=== PATIENT | female | born 1940 | race Caucasian/White ===

== ENCOUNTER 2017-03-23 15:06 | Inpatient (IN) | payer OTHER ==
[~2017-03-23] VITALS: Ht 170.2 cm; Wt 79.2 kg
[2017-03-23 15:49] LABS: CONDITION Y; Hematocrit 35.9 % (36.0-46.0); Hemoglobin 11.8 g/dL (12.2-16.2); Mean Corpuscular Hemoglobin 30.7 pg (28.0-32.0); Mean Corpuscular Hgb Conc. 32.9 g/dL (32.0-36.0); Mean Corpuscular Volume 93.4 fL (80.0-100.0); Mean Platelet Volume 8.4 fL (7.4-10.4); Platelet Count (auto) 273 10^3/uL (140-450); Red Cell Distribution Width 14.4 % (11.6-16.0); SUSPECT SEE PRINTOUT; White Blood Cell 17.3 10^3/uL (4.4-10.8)
[2017-03-23 15:52] LABS: Metamyelocytes % 0; Myelocytes % 0; Promyelocytes % 0; Reactive Lymphocytes 0
[2017-03-23 16:07] LABS: Albumin 3.3 g/dL (3.4-5.0); Calcium 8.7 mg/dL (8.5-10.1); Magnesium 2.4 mg/dL (1.6-2.6); Potassium 4.3 mmol/L (3.5-5.1)
[2017-03-23 16:13] LABS: Total Protein 7.1 g/dL (6.4-8.2)
[2017-03-23 16:44] LABS: Anisocytosis Slight; Platelet Estimate Adequate
[2017-03-23] MEDS ORDERED: PIPERACILLIN-TAZOB 3.375GM 100 ML IV ONE (18:30)
[2017-03-23] MEDS ORDERED: VANCOMYCIN PER PHARMACY 0 MG IV SCH (18:30)
[2017-03-23] MEDS ORDERED: SODIUM CHLORIDE 0.9% 2,000 ML IV ONE (18:30)
[2017-03-23] MEDS ORDERED: VANCOMYCIN 1GM/250ML D5W 250 ML IV ONE (19:00)
[2017-03-23 21:15] LABS: Urine Bilirubin Negative (Negative); Urine Blood TRACE /uL (Negative); Urine Color Yellow (Yellow); Urine Glucose Normal (Normal); Urine Hyaline Cast FEW /lpf (0 - 2); Urine Ketone Negative (Negative); Urine Mucus FEW (None Seen); Urine Nitrite Negative (Negative); Urine RBC 1 /hpf (0 - 4); Urine Squamous Epithelial Cell FEW /hpf (<5); Urine Urobilinogen Normal (Negative); Urine pH 5.5 (5.0-8.0)
[2017-03-23] MEDS ORDERED: ACETAMINOPHEN 325 MG TAB PO ONE (22:00)
[2017-03-23] MEDS ORDERED: NITROGLYCERIN 0.4 MG SL TAB SL PRN (23:45)
[2017-03-23] MEDS ORDERED: ONDANSETRON HCL 4 MG/2 ML VIAL IV PRN (23:45)
[2017-03-23] MEDS ORDERED: MORPHINE SULF INJ 2 MG/ML SYRINGE 1ML IV PRN ×2 (23:45)
[2017-03-24] VITALS (8 sets, daily range): BP systolic 108–177; BP diastolic 60–84
[2017-03-24] MEDS: hydrALAZINE HCL 20 MG/ML VL IV PRN (05:47)
[2017-03-24] MEDS: ALBUTEROL SULF 2.5 MG/0.5ML(0.5%) NEB SOLN NEB PRN ×2 (06:10→18:25)
[2017-03-24] MEDS: IPRATROPIUM BROM 0.5 MG/2.5ML INH SOL NEB PRN ×2 (06:10→18:25)
[2017-03-24 06:38] LABS: Basophils # (auto) 0 uL; Basophils % (auto) 0.2 % (0.0-2.0); CONDITION Y; Eosinophils # (auto) 0.1 uL; Eosinophils % (auto) 0.4 % (0.0-7.0); Hematocrit 34.1 % (36.0-46.0); Hemoglobin 11.4 g/dL (12.2-16.2); Lymphocytes # (auto) 1.1 uL; Lymphocytes % (auto) 7.6 % (10.0-50.0); Mean Corpuscular Hemoglobin 30.9 pg (28.0-32.0); Mean Corpuscular Hgb Conc. 33.4 g/dL (32.0-36.0); Mean Corpuscular Volume 92.5 fL (80.0-100.0); Mean Platelet Volume 9.1 fL (7.4-10.4); Monocytes # (auto) 0.9 uL; Monocytes % (auto) 5.6 % (0.0-12.0); Neutrophils # (auto) 13.1 uL; Neutrophils % (auto) 86.2 % (37.0-80.0); Platelet Count (auto) 254 10^3/uL (140-450); Red Cell Distribution Width 14.9 % (11.6-16.0); White Blood Cell 15.2 10^3/uL (4.4-10.8)
[2017-03-24 06:56] LABS: Calcium 8.6 mg/dL (8.5-10.1); Potassium 4.5 mmol/L (3.5-5.1)
[2017-03-24 06:59] LABS: BUN/Creatinine Ratio 20.8
[2017-03-24] MEDS: amLODIPine BESYLATE 5 MG TAB PO SCH (08:21)
[2017-03-24] MEDS: PANTOPRAZOLE 40 MG TAB PO SCH (08:21)
[2017-03-24] MEDS: CLOPIDOGREL BISULFATE 75 MG TAB PO SCH (08:21)
[2017-03-24] MEDS: METOPROLOL TARTRATE 25 MG TAB PO SCH ×2 (08:22→21:48)
[2017-03-24] MEDS: AZITHROMYCIN 500MG/D5W 250ML 250 ML IV SCH (08:22)
[2017-03-24] MEDS: ASPirin 81 mg TAB PO SCH (08:22)
[2017-03-24] MEDS ORDERED: FUROSEMIDE 20 MG TAB PO SCH (10:00)
[2017-03-24 16:23] LABS: Basophils # (auto) 0 uL; Basophils % (auto) 0.3 % (0.0-2.0); CONDITION Y; Eosinophils # (auto) 0 uL; Eosinophils % (auto) 0.2 % (0.0-7.0); Hematocrit 34.4 % (36.0-46.0); Hemoglobin 11.4 g/dL (12.2-16.2); Lymphocytes # (auto) 1.3 uL; Lymphocytes % (auto) 8.8 % (10.0-50.0); Mean Corpuscular Hgb Conc. 33.3 g/dL (32.0-36.0); Mean Corpuscular Volume 93.3 fL (80.0-100.0); Mean Platelet Volume 8.7 fL (7.4-10.4); Monocytes # (auto) 0.8 uL; Monocytes % (auto) 5.1 % (0.0-12.0); Neutrophils # (auto) 12.9 uL; Neutrophils % (auto) 85.6 % (37.0-80.0); Platelet Count (auto) 271 10^3/uL (140-450); Red Cell Distribution Width 15.1 % (11.6-16.0); White Blood Cell 15.1 10^3/uL (4.4-10.8)
[2017-03-24 16:44] LABS: INR 1.03 (0.9-1.15); Partial Thromboplastin Time 30.1 sec (22.64-33.71); Prothrombin Time 11.2 sec (9.37-12.3)
[2017-03-24] MEDS ORDERED: SOD CHL 0.45% 1,000 ML IV SCH (17:00)
[2017-03-24] MEDS ORDERED: HEPARIN DRIP/D5W 100UNITS/ML 250 ML IV SCH (18:00)
[2017-03-24] MEDS ORDERED: HEPARIN SODIUM (PORCINE) 5000 UNITS/ML 1ML VIAL IV ONE (18:00)
[2017-03-24] MEDS: ACETYLCYSTEINE ORAL for CIN 20%(200MG/ML) 4ML PO SCH (21:48)
[2017-03-24] MEDS ORDERED: ATORVASTATIN 20 MG TAB PO SCH (22:00)
[2017-03-24] MEDS: guaiFENesin-COD 10 ML UD PO PRN (23:23)
[2017-03-25] MEDS: ALBUTEROL SULF 2.5 MG/0.5ML(0.5%) NEB SOLN NEB PRN ×3 (04:09→13:42)
[2017-03-25] MEDS: IPRATROPIUM BROM 0.5 MG/2.5ML INH SOL NEB PRN ×3 (04:09→13:42)
[2017-03-25 05:00] VITALS: BP 160/73
[2017-03-25] MEDS: hydrALAZINE HCL 20 MG/ML VL IV PRN (05:08)
[2017-03-25 06:15] LABS: INR 1.05 (0.9-1.15); Prothrombin Time 11.4 sec (9.37-12.3)
[2017-03-25 06:25] LABS: Potassium 4.2 mmol/L (3.5-5.1)
[2017-03-25 06:31] LABS: BUN/Creatinine Ratio 22.9; Calcium 8.3 mg/dL (8.5-10.1)
[2017-03-25 06:47] LABS: Magnesium 2.2 mg/dL (1.6-2.6)
[2017-03-25] MEDS ORDERED: IODIXANOL 320MG/ML 100ML BTL IV ONE (07:18)
[2017-03-25] MEDS ORDERED: LIDOCAINE 2%HCL (LOCAL ANESTH.) INJ 20ML MDV ONE (07:18)
[2017-03-25] MEDS ORDERED: HEPARIN IN NS 1000Units/500mL 0 ML ONE (07:19)
[2017-03-25] MEDS ORDERED: ADENOSINE 67 MG in GIVE UN-DILUTED 0 ML IV STA (08:04)
[2017-03-25] MEDS: ASPirin 81 mg TAB PO SCH (10:00)
[2017-03-25] MEDS: AZITHROMYCIN 500MG/D5W 250ML 250 ML IV SCH (10:12)
[2017-03-25] MEDS: CLOPIDOGREL BISULFATE 75 MG TAB PO SCH (10:13)
[2017-03-25] MEDS: PANTOPRAZOLE 40 MG TAB PO SCH (10:13)
[2017-03-25] MEDS: amLODIPine BESYLATE 5 MG TAB PO SCH (10:13)
[2017-03-25] MEDS: METOPROLOL TARTRATE 25 MG TAB PO SCH (10:14)
[2017-03-25] MEDS: ACETYLCYSTEINE ORAL for CIN 20%(200MG/ML) 4ML PO SCH (10:25)
[2017-03-25 12:10] VITALS: BP 103/75
[2017-03-25] MEDS: guaiFENesin-COD 10 ML UD PO PRN (13:35)
[2017-03-25 13:49] LABS: Allen Test Yes; Base Excess -4.3 mmol/L (-2.0-2.0); Blood 02Sat 89.9 % (96-100); Blood COHb 0.3 % (0.5-1.5); Blood MetHb 0.1 % (0.0-1.5); HCO3 20.4 mmol/L (22-26.0); HHb 10.1 % (0.0-5.0); MODE ROOM AIR; O2Hb 89.5 % (94.0-97.0); PO2 60.2 mmHg (80.0-100.0); PO2(T) 60.2 mmHg (80.0-100.0); Room 0246T; Sample Type Arterial; pH 7.371 (7.350-7.450)
[2017-03-25 15:16] VITALS: BP 103/75
[2017-03-25 16:35] VITALS: BP 117/50
== END 2017-03-25 17:20 | disposition home or self-care (01) | DRG 280 ==
LOC: ER 15:13 → TELE 15:14 → TELE-EAST 03-24 05:07
PROVIDERS: ADMIT Hospitalist; ATTEND Hospitalist
DX: I21.4 Non-ST elevation (NSTEMI) myocardial infarction (principal); G92 Toxic encephalopathy; N17.9 Acute kidney failure, unspecified; I13.0 Hypertensive heart and chronic kidney disease with heart failure and stage 1 through stage 4 chronic kidney disease, or unspecified chronic kidney disease; F05 Delirium due to known physiological condition; I50.9 Heart failure, unspecified; F03.90 Unspecified dementia, unspecified severity, without behavioral disturbance, psychotic disturbance, mood disturbance, and anxiety; E78.5 Hyperlipidemia, unspecified; G62.9 Polyneuropathy, unspecified; F17.210 Nicotine dependence, cigarettes, uncomplicated; I73.9 Peripheral vascular disease, unspecified; J44.9 Chronic obstructive pulmonary disease, unspecified; J06.9 Acute upper respiratory infection, unspecified; K21.9 Gastro-esophageal reflux disease without esophagitis; M15.9 Polyosteoarthritis, unspecified; N18.3 Chronic kidney disease, stage 3 (moderate); Z86.73 Personal history of transient ischemic attack (TIA), and cerebral infarction without residual deficits; Z82.49 Family history of ischemic heart disease and other diseases of the circulatory system; Z82.5 Family history of asthma and other chronic lower respiratory diseases
CPT/HCPCS: 36415; 36600; 70450; 70551; 71010; 76775; 80048; 80053; 81001; 82805; 83735; 84484; 85007; 85025; 85027; 85610; 85730; 87040; 93005; 93886; 94640; 95819; 96365; 96366; 96367; J0153; J2405; J2543; Q9967

== ENCOUNTER 2017-03-31 13:05 | Inpatient (IN) | payer OTHER ==
[~2017-03-31] VITALS: Ht 157.5 cm; Wt 72.6 kg
[2017-03-31 13:30] LABS: Hematocrit 28.9 % (36.0-46.0); Hemoglobin 9.8 g/dL (12.2-16.2); Mean Corpuscular Hemoglobin 31.3 pg (28.0-32.0); Mean Corpuscular Hgb Conc. 33.8 g/dL (32.0-36.0); Mean Corpuscular Volume 92.4 fL (80.0-100.0); Mean Platelet Volume 7.3 fL (6.9-10.8); Platelet Count (auto) 332 10^3/uL (140-450); Red Cell Distribution Width 14.3 % (11.8-14.3); White Blood Cell 10.5 10^3/uL (4.4-10.8)
[2017-03-31] MEDS ORDERED: SODIUM CHLORIDE 0.9% 1,000 ML IV ONE (13:46)
[2017-03-31 13:47] LABS: INR 1.12 (0.9-1.15); Partial Thromboplastin Time 28.7 sec (22.64-33.71); Prothrombin Time 12.2 sec (9.37-12.3)
[2017-03-31 13:49] LABS: Metamyelocytes % 0; Myelocytes % 0; Promyelocytes % 0; Reactive Lymphocytes 0
[2017-03-31] MEDS ORDERED: ALBUTEROL SULF 2.5 MG/0.5ML(0.5%) NEB SOLN NEB ONE (14:00)
[2017-03-31] MEDS ORDERED: IPRATROPIUM BROM 0.5 MG/2.5ML INH SOL NEB ONE (14:00)
[2017-03-31] MEDS ORDERED: FUROSEMIDE 40 MG/4 ML VIAL IV ONE (14:00)
[2017-03-31 14:07] LABS: Albumin 2.9 g/dL (3.4-5.0); BUN/Creatinine Ratio 27.5; Bilirubin, Total 0.6 mg/dL (0.2-1.0); Calcium 8.5 mg/dL (8.5-10.1); Magnesium 2.7 mg/dL (1.6-2.6); Potassium 4.7 mmol/L (3.5-5.1); Total Protein 6.7 g/dL (6.4-8.2)
[2017-03-31 14:23] LABS: Temperature: 21.5 C (20.0-25.0)
[2017-03-31 14:37] LABS: Platelet Estimate Adequate
[2017-03-31] MEDS ORDERED: MORPHINE SULF INJ 2 MG/ML SYRINGE 1ML IV PRN ×3 (17:00→19:30)
[2017-03-31] MEDS ORDERED: NITROGLYCERIN 0.4 MG SL TAB SL PRN (17:00)
[2017-03-31] MEDS: ASPirin 81 mg TAB PO SCH (17:15)
[2017-03-31] MEDS: CLOPIDOGREL BISULFATE 75 MG TAB PO SCH (17:15)
[2017-03-31] MEDS ORDERED: hydrALAZINE HCL 20 MG/ML VL IV PRN (18:45)
[2017-03-31] MEDS ORDERED: LORazepam 2MG/ML-1ML VIAL IV PRN (18:45)
[2017-03-31 19:22] VITALS: BP 165/70
[2017-03-31 21:54] VITALS: BP 163/65
[2017-03-31] MEDS ORDERED: ATORVASTATIN 20 MG TAB PO SCH (22:00)
[2017-03-31] MEDS: IPRATROPIUM BROM 0.5 MG/2.5ML INH SOL NEB PRN (23:17)
[2017-03-31] MEDS: ALBUTEROL SULF 2.5 MG/0.5ML(0.5%) NEB SOLN NEB PRN (23:18)
[2017-04-01] MEDS ORDERED: CHOL20007 PO (02:12)
[2017-04-01] MEDS ORDERED: SOTA80TA PO (02:12)
[2017-04-01] MEDS ORDERED: FURO20TA3 PO (02:12)
[2017-04-01] MEDS ORDERED: MAGN400T5 OR (02:12)
[2017-04-01] MEDS ORDERED: BUPR75TA9 PO (02:12)
[2017-04-01] MEDS ORDERED: CLOP75TA41 PO (02:12)
[2017-04-01] MEDS ORDERED: PANT40TA2 PO (02:12)
[2017-04-01] MEDS ORDERED: AMLO5TAB2 PO (02:12)
[2017-04-01] MEDS ORDERED: RANO500T2 PO (02:12)
[2017-04-01] MEDS ORDERED: CITA-77 PO (02:12)
[2017-04-01] MEDS ORDERED: POTA10TA51 PO (02:12)
[2017-04-01] MEDS ORDERED: METO25TA5 PO (02:12)
[2017-04-01] MEDS ORDERED: ATOR40TA52 PO (02:12)
[2017-04-01] MEDS ORDERED: ASPI81TA27 PO (02:12)
[2017-04-01] MEDS ORDERED: ALBU2TAB4 PO (02:12)
[2017-04-01] MEDS: ALBUTEROL SULF 2.5 MG/0.5ML(0.5%) NEB SOLN NEB PRN (02:47)
[2017-04-01] MEDS: IPRATROPIUM BROM 0.5 MG/2.5ML INH SOL NEB PRN (02:47)
[2017-04-01 03:01] VITALS: BP 183/65
[2017-04-01 05:00] VITALS: BP 151/76
[2017-04-01 06:27] LABS: Hematocrit 28.2 % (36.0-46.0); Hemoglobin 9.8 g/dL (12.2-16.2); Mean Corpuscular Hemoglobin 31.4 pg (28.0-32.0); Mean Corpuscular Hgb Conc. 34.7 g/dL (32.0-36.0); Mean Corpuscular Volume 90.6 fL (80.0-100.0); Mean Platelet Volume 7.6 fL (6.9-10.8); Platelet Count (auto) 312 10^3/uL (140-450); Red Cell Distribution Width 14.2 % (11.8-14.3); White Blood Cell 8.6 10^3/uL (4.4-10.8)
[2017-04-01 06:53] LABS: Albumin 2.7 g/dL (3.4-5.0); BUN/Creatinine Ratio 27.2; Bilirubin, Total 0.6 mg/dL (0.2-1.0); Calcium 8.4 mg/dL (8.5-10.1); Potassium 3.8 mmol/L (3.5-5.1); Total Protein 6.2 g/dL (6.4-8.2)
[2017-04-01 07:08] LABS: Metamyelocytes % 0; Myelocytes % 0; Promyelocytes % 0; Reactive Lymphocytes 0
[2017-04-01 07:43] LABS: Platelet Estimate Adequate
[2017-04-01 09:21] VITALS: BP 189/62
[2017-04-01] MEDS: ASPirin 81 mg TAB PO SCH (10:00)
[2017-04-01] MEDS: CLOPIDOGREL BISULFATE 75 MG TAB PO SCH (10:00)
[2017-04-01] MEDS ORDERED: FUROSEMIDE 40 MG/4 ML VIAL IV SCH (10:00)
[2017-04-01 13:00] VITALS: BP 176/69
[2017-04-01 13:43] VITALS: BP 189/62
== END 2017-04-01 16:50 | disposition hospice, home (50) | DRG 280 ==
LOC: EDUNIT# 13:05 → EDBD 13:05 → ER 13:08 → TELE 13:09 → TELE-EAST 18:13
PROVIDERS: ADMIT Internal Medicine; ATTEND Internal Medicine
DX: I21.4 Non-ST elevation (NSTEMI) myocardial infarction (principal); I50.43 Acute on chronic combined systolic (congestive) and diastolic (congestive) heart failure; J81.1 Chronic pulmonary edema; L89.309 Pressure ulcer of unspecified buttock, unspecified stage; E44.0 Moderate protein-calorie malnutrition; I13.0 Hypertensive heart and chronic kidney disease with heart failure and stage 1 through stage 4 chronic kidney disease, or unspecified chronic kidney disease; F03.90 Unspecified dementia, unspecified severity, without behavioral disturbance, psychotic disturbance, mood disturbance, and anxiety; E87.1 Hypo-osmolality and hyponatremia; I50.9 Heart failure, unspecified; I48.91 Unspecified atrial fibrillation; E78.5 Hyperlipidemia, unspecified; N18.9 Chronic kidney disease, unspecified; J44.9 Chronic obstructive pulmonary disease, unspecified; I70.0 Atherosclerosis of aorta; I25.119 Atherosclerotic heart disease of native coronary artery with unspecified angina pectoris; M19.90 Unspecified osteoarthritis, unspecified site; Z66 Do not resuscitate; Z87.01 Personal history of pneumonia (recurrent); Z88.2 Allergy status to sulfonamides
CPT/HCPCS: 36415; 51702; 71010; 80053; 83735; 83880; 84443; 84484; 85007; 85027; 85379; 85610; 85730; 93005; 94640; 96361; 96374

== ENCOUNTER 2017-10-22 17:47 | Emergency (ER) | payer MEDICARE, OTHER ==
[~2017-10-22] VITALS: Ht 165.1 cm; Wt 77.1 kg
[~2017-10-22 17:47] MED LIST: ALBU2TAB4 PO; AMLO5TAB2 PO; ATOR40TA52 PO; BUPR75TA9 PO; CHOL20007 PO; CITA-77 PO; FURO20TA3 PO; MAGN400T5 OR; PANT40TA2 PO; POTA10TA51 PO; RANO500T2 PO
[2017-10-22] MEDS ORDERED: HYDROcodone-ACET 10/325MG TAB PO ONE (20:00)
[2017-10-22 20:19] LABS: Basophils # (auto) 0.1 uL; Basophils % (auto) 0.7 % (0.0-2.0); Eosinophils # (auto) 0.2 uL; Eosinophils % (auto) 2.2 % (0.0-7.0); Hematocrit 38.6 % (36.0-46.0); Hemoglobin 12.5 g/dL (12.2-16.2); Lymphocytes % (auto) 21.2 % (10.0-50.0); Mean Corpuscular Hemoglobin 31.1 pg (28.0-32.0); Mean Corpuscular Hgb Conc. 32.4 g/dL (32.0-36.0); Monocytes # (auto) 0.7 uL; Monocytes % (auto) 7.4 % (0.0-12.0); Neutrophils # (auto) 6.4 uL; Neutrophils % (auto) 68.5 % (37.0-80.0); Platelet Count (auto) 246 10^3/uL (140-450); Red Blood Cells 4.02 10^6/uL (4.0-5.20); Red Cell Distribution Width 16.1 % (11.8-14.3); White Blood Cell 9.3 10^3/uL (4.4-10.8)
[2017-10-22 20:38] LABS: Alanine Aminotransferase 16 U/L (13-56); Albumin 3.3 g/dL (3.4-5.0); Anion Gap 7 (5-15); Aspartate Aminotransferase 22 U/L (15-37); BUN/Creatinine Ratio 32.7; Blood Urea Nitrogen 50 mg/dL (7-18); Calcium 8.8 mg/dL (8.5-10.1); Carbon Dioxide 23 mmol/L (21-32); Chloride 111 mmol/L (98-107); GFR African American 42 mL/min; GFR Non-African American 35 mL/min; Glucose 86 mg/dL (74-106); Magnesium 2.3 mg/dL (1.6-2.6); Potassium 4.6 mmol/L (3.5-5.1); Sodium 141 mmol/L (136-145)
[2017-10-22 20:43] LABS: Alkaline Phosphatase 92 U/L (45-117); Bilirubin, Total 0.3 mg/dL (0.2-1.0)
[2017-10-23] MEDS ORDERED: FUROSEMIDE 20 MG/2 ML VIAL IV ONE (01:15)
[2017-10-23 02:24] LABS: Urine Bacteria NONE SEEN /hpf (None Seen); Urine Blood Negative /uL (Negative); Urine Specific Gravity 1.012 (1.001-1.035); Urine WBC 1 /hpf (0 - 5)
[2017-10-23] MEDS ORDERED: HYDROcodone-ACET 10/325MG TAB PO ONE (03:30)
[2017-10-23] MEDS ORDERED: SODIUM CHLORIDE 0.9% 1,000 ML IV ONE (05:15)
[2017-10-23 09:12] VITALS: BP 147/63
== END 2017-10-23 10:20 | disposition home or self-care (01) ==
LOC: ER 17:48
DX: I11.0 Hypertensive heart disease with heart failure (principal); I50.9 Heart failure, unspecified; I25.2 Old myocardial infarction; J44.9 Chronic obstructive pulmonary disease, unspecified; I48.91 Unspecified atrial fibrillation; Z79.899 Other long term (current) drug therapy; Z88.2 Allergy status to sulfonamides
CPT/HCPCS: 36415; 70450; 71101; 71250; 72125; 80053; 81001; 83735; 83880; 84484; 85025; 94761; 96374; 99285; J1940

== ENCOUNTER 2018-05-08 12:51 | Inpatient (IN) | payer OTHER ==
[~2018-05-08] VITALS: Ht 157.5 cm; Wt 106.9 kg
[~2018-05-08 12:51] MED LIST changes: +AMLO5TAB13 PO; -AMLO5TAB2 PO
[2018-05-08] MEDS ORDERED: SODIUM CHLORIDE 0.9% 1,000 ML IVB ONE (13:16)
[2018-05-08 14:02] LABS: Basophils # (auto) 0.1 uL; Basophils % (auto) 0.5 % (0.0-2.0); Eosinophils # (auto) 0 uL; Eosinophils % (auto) 0.3 % (0.0-7.0); Hemoglobin 11.7 g/dL (12.2-16.2); Lymphocytes # (auto) 0.6 uL; Lymphocytes % (auto) 6.6 % (10.0-50.0); Mean Corpuscular Hemoglobin 31.9 pg (28.0-32.0); Mean Corpuscular Hgb Conc. 33.5 g/dL (32.0-36.0); Mean Corpuscular Volume 95.2 fL (80.0-100.0); Monocytes # (auto) 0.6 uL; Monocytes % (auto) 5.9 % (0.0-12.0); Neutrophils # (auto) 8.3 uL; Neutrophils % (auto) 86.7 % (37.0-80.0); Platelet Count (auto) 245 10^3/uL (140-450); Red Blood Cells 3.67 10^6/uL (4.0-5.20); Red Cell Distribution Width 14.6 % (11.8-14.3); White Blood Cell 9.6 10^3/uL (4.4-10.8)
[2018-05-08 14:19] LABS: Alanine Aminotransferase 17 U/L (13-56); Albumin 3.3 g/dL (3.4-5.0); Anion Gap 9 (5-15); Aspartate Aminotransferase 29 U/L (15-37); BUN/Creatinine Ratio 20.8; Blood Alcohol < 3.0 mg/dL (0-5); Blood Urea Nitrogen 54 mg/dL (7-18); Calcium 7.9 mg/dL (8.5-10.1); Carbon Dioxide 21 mmol/L (21-32); Chloride 111 mmol/L (98-107); GFR African American 23 mL/min; GFR Non-African American 19 mL/min; Glucose 105 mg/dL (74-106); Potassium 4.5 mmol/L (3.5-5.1); Sodium 141 mmol/L (136-145)
[2018-05-08 14:23] LABS: Alkaline Phosphatase 82 U/L (45-117); Bilirubin, Total 0.2 mg/dL (0.2-1.0); Total Protein 7.1 g/dL (6.4-8.2)
[2018-05-08 14:24] LABS: Acetaminophen 33.1 ug/mL (10-30); Salicylate < 0.2 mg/dL (2.8-20.0)
[2018-05-08] MEDS ORDERED: ACETYLCYSTEINE IV ONE ×2 (15:00→16:00)
[2018-05-08] MEDS ORDERED: D5W 5% IV ONE ×2 (15:00→16:00)
[2018-05-08] MEDS ORDERED: NITROGLYCERIN 0.4 MG SL TAB SL PRN (17:15)
[2018-05-08] MEDS ORDERED: SOD CHL 0.45% 1,000 ML IV ONE (17:15)
[2018-05-08] MEDS ORDERED: MORPHINE SULFATE 4 MG/ML SYR/VIAL IV PRN (17:15)
[2018-05-08] MEDS ORDERED: NALOXONE HCL 0.4 MG/ML VIAL IV ONE (18:30)
[2018-05-08] MEDS ORDERED: NALOXONE HCL 0.4 MG/ML VIAL IV PRN (18:30)
[2018-05-08] MEDS ORDERED: NALOXONE HCL 0.4 MG/ML VIAL ONE (18:33)
[2018-05-08 22:05] LABS: Basophils # (auto) 0.1 uL; Basophils % (auto) 0.7 % (0.0-2.0); Eosinophils # (auto) 0 uL; Eosinophils % (auto) 0.4 % (0.0-7.0); Hematocrit 35.7 % (36.0-46.0); Hemoglobin 11.6 g/dL (12.2-16.2); Lymphocytes # (auto) 1.1 uL; Lymphocytes % (auto) 10.8 % (10.0-50.0); Mean Corpuscular Hemoglobin 31.6 pg (28.0-32.0); Mean Corpuscular Hgb Conc. 32.5 g/dL (32.0-36.0); Mean Corpuscular Volume 97.4 fL (80.0-100.0); Monocytes # (auto) 0.7 uL; Monocytes % (auto) 6.9 % (0.0-12.0); Neutrophils # (auto) 8.5 uL; Neutrophils % (auto) 81.2 % (37.0-80.0); Platelet Count (auto) 227 10^3/uL (140-450); Red Blood Cells 3.67 10^6/uL (4.0-5.20); Red Cell Distribution Width 15.1 % (11.8-14.3); White Blood Cell 10.5 10^3/uL (4.4-10.8)
[2018-05-08] MEDS: D5W 5% IV SCH (22:22)
[2018-05-08] MEDS: ACETYLCYSTEINE IV SCH (22:22)
[2018-05-08 22:26] LABS: Albumin 2.9 g/dL (3.4-5.0); Calcium 7.9 mg/dL (8.5-10.1); Potassium 4.6 mmol/L (3.5-5.1)
[2018-05-08 22:30] LABS: BUN/Creatinine Ratio 18.1; Bilirubin, Total 0.2 mg/dL (0.2-1.0)
[2018-05-09 09:24] LABS: Urine Bacteria NONE SEEN /hpf (None Seen); Urine Blood Negative /uL (Negative); Urine Mucus FEW (None Seen); Urine Specific Gravity 1.021 (1.001-1.035); Urine WBC 2 /hpf (0 - 5)
[2018-05-09 09:28] LABS: Alcohol, Urine < 3.0 mg/dL (0-5); Amphetamine Screen, Urine NEGATIVE (NEGATIVE); Barbiturate Scree,Urine NEGATIVE (NEGATIVE); Benzodiazephine Screen, Urine NEGATIVE (NEGATIVE); Cannabinoid Screen, Urine NEGATIVE (NEGATIVE); Cocaine Screen, Urine NEGATIVE (NEGATIVE); Opiate Scree,Urine POSITIVE (NEGATIVE); Phencyclidine Screen, Urine NEGATIVE (NEGATIVE)
[2018-05-09] MEDS ORDERED: NALOXONE HCL 1MG/ML 2ML SYRINGE IV ONE (09:45)
[2018-05-09 10:00] LABS: Basophils # (auto) 0 uL; Basophils % (auto) 0.4 % (0.0-2.0); Eosinophils # (auto) 0.1 uL; Eosinophils % (auto) 1.3 % (0.0-7.0); Hematocrit 35.4 % (36.0-46.0); Hemoglobin 11.7 g/dL (12.2-16.2); Lymphocytes % (auto) 10.1 % (10.0-50.0); Mean Corpuscular Hemoglobin 31.7 pg (28.0-32.0); Mean Corpuscular Volume 96.1 fL (80.0-100.0); Monocytes # (auto) 0.8 uL; Monocytes % (auto) 7.7 % (0.0-12.0); Neutrophils # (auto) 8.1 uL; Neutrophils % (auto) 80.5 % (37.0-80.0); Platelet Count (auto) 217 10^3/uL (140-450); Red Blood Cells 3.69 10^6/uL (4.0-5.20); Red Cell Distribution Width 15.1 % (11.8-14.3); White Blood Cell 10.1 10^3/uL (4.4-10.8)
[2018-05-09 10:18] LABS: BUN/Creatinine Ratio 18.2; Calcium 8.2 mg/dL (8.5-10.1)
[2018-05-09] MEDS ORDERED: LORazepam 2MG/ML-1ML VIAL ONE (12:06)
[2018-05-09] MEDS ORDERED: LORazepam 2MG/ML-1ML VIAL IV ONE ×2 (12:15→16:30)
[2018-05-09 12:40] LABS: Creatinine, Urine 133 mg/dL (30.0-125.0); Sodium Urine 41 mmol/L (40-220)
[2018-05-09] MEDS: D5W 5% IV SCH (13:57)
[2018-05-09] MEDS: ACETYLCYSTEINE IV SCH (13:57)
[2018-05-09 15:08] LABS: Albumin 2.8 g/dL (3.4-5.0); Calcium 8.3 mg/dL (8.5-10.1); Potassium 3.5 mmol/L (3.5-5.1)
[2018-05-09 15:10] LABS: BUN/Creatinine Ratio 19.8
[2018-05-09 15:12] LABS: Bilirubin, Total 0.5 mg/dL (0.2-1.0); Total Protein 6.5 g/dL (6.4-8.2)
[2018-05-10 02:28] VITALS: BP 139/75
[2018-05-10] MEDS: D5W 5% IV SCH (04:00)
[2018-05-10] MEDS: ACETYLCYSTEINE IV SCH (04:00)
[2018-05-10 05:00] VITALS: BP 123/59
[2018-05-10 06:24] LABS: Basophils # (auto) 0.1 uL; Basophils % (auto) 0.8 % (0.0-2.0); Eosinophils # (auto) 0 uL; Eosinophils % (auto) 0.2 % (0.0-7.0); Hemoglobin 11.1 g/dL (12.2-16.2); Lymphocytes # (auto) 1.2 uL; Lymphocytes % (auto) 12.9 % (10.0-50.0); Mean Corpuscular Hemoglobin 32.1 pg (28.0-32.0); Mean Corpuscular Hgb Conc. 33.7 g/dL (32.0-36.0); Mean Corpuscular Volume 95.4 fL (80.0-100.0); Monocytes # (auto) 0.6 uL; Monocytes % (auto) 6.8 % (0.0-12.0); Neutrophils # (auto) 7.5 uL; Neutrophils % (auto) 79.3 % (37.0-80.0); Platelet Count (auto) 186 10^3/uL (140-450); Red Blood Cells 3.46 10^6/uL (4.0-5.20); Red Cell Distribution Width 14.2 % (11.8-14.3); White Blood Cell 9.4 10^3/uL (4.4-10.8)
[2018-05-10 06:39] LABS: Albumin 2.5 g/dL (3.4-5.0); Calcium 8.4 mg/dL (8.5-10.1); Potassium 3.2 mmol/L (3.5-5.1)
[2018-05-10 06:44] LABS: BUN/Creatinine Ratio 24.8; Bilirubin, Total 0.6 mg/dL (0.2-1.0); Phosphorus 3.3 mg/dL (2.5-4.90); Total Protein 6.1 g/dL (6.4-8.2)
[2018-05-10 08:30] VITALS: BP 166/80
[2018-05-10] MEDS ORDERED: D5W/SOD CHL 0.45%/KCL 20MEQ 1,000 ML IV SCH (11:00)
[2018-05-10 13:00] VITALS: BP 164/66
[2018-05-10] MEDS: SODIUM BICARBONATE 50ML VIAL 50 ML in D5W/SOD CHL 0.45%/KCL 20MEQ 1,000 ML IV SCH (13:56)
[2018-05-10] MEDS ORDERED: POTASSIUM CHL 20 Meq TABLET PO SCH ×2 (14:00)
[2018-05-10 17:14] VITALS: BP 161/75
[2018-05-10 22:00] VITALS: BP 166/76
[2018-05-10 22:46] LABS: Alanine Aminotransferase 25 U/L (13-56); Albumin 2.5 g/dL (3.4-5.0); Anion Gap 9 (5-15); Aspartate Aminotransferase 55 U/L (15-37); BUN/Creatinine Ratio 21.2; Blood Urea Nitrogen 25 mg/dL (7-18); Calcium 8.5 mg/dL (8.5-10.1); Carbon Dioxide 21 mmol/L (21-32); Chloride 117 mmol/L (98-107); GFR African American 57 mL/min; GFR Non-African American 47 mL/min; Glucose 105 mg/dL (74-106); Potassium 3.7 mmol/L (3.5-5.1); Sodium 147 mmol/L (136-145)
[2018-05-10 22:49] LABS: Alkaline Phosphatase 67 U/L (45-117); Bilirubin, Total 0.7 mg/dL (0.2-1.0); Total Protein 6.2 g/dL (6.4-8.2)
[2018-05-11] MEDS: SODIUM BICARBONATE 50ML VIAL 50 ML in D5W/SOD CHL 0.45%/KCL 20MEQ 1,000 ML IV SCH ×2 (05:16→15:00)
[2018-05-11 05:37] LABS: Basophils # (auto) 0.1 uL; Basophils % (auto) 1.2 % (0.0-2.0); Eosinophils # (auto) 0 uL; Eosinophils % (auto) 0.3 % (0.0-7.0); Hematocrit 34.6 % (36.0-46.0); Hemoglobin 11.7 g/dL (12.2-16.2); Lymphocytes # (auto) 0.8 uL; Lymphocytes % (auto) 7.4 % (10.0-50.0); Mean Corpuscular Hemoglobin 31.8 pg (28.0-32.0); Mean Corpuscular Hgb Conc. 33.9 g/dL (32.0-36.0); Mean Corpuscular Volume 93.8 fL (80.0-100.0); Monocytes # (auto) 0.6 uL; Monocytes % (auto) 5.4 % (0.0-12.0); Neutrophils # (auto) 9.1 uL; Neutrophils % (auto) 85.7 % (37.0-80.0); Platelet Count (auto) 196 10^3/uL (140-450); Red Blood Cells 3.69 10^6/uL (4.0-5.20); Red Cell Distribution Width 13.9 % (11.8-14.3); White Blood Cell 10.6 10^3/uL (4.4-10.8)
[2018-05-11 05:53] LABS: Albumin 2.6 g/dL (3.4-5.0); Calcium 8.3 mg/dL (8.5-10.1); Potassium 3.5 mmol/L (3.5-5.1)
[2018-05-11 05:55] LABS: BUN/Creatinine Ratio 22.5
[2018-05-11 05:58] LABS: Bilirubin, Total 0.8 mg/dL (0.2-1.0); Total Protein 6.1 g/dL (6.4-8.2)
[2018-05-11 06:05] VITALS: BP 152/78
[2018-05-11 09:00] VITALS: BP 157/64
[2018-05-11] MEDS ORDERED: cefTRIAXone 1GM/50ML D5W 50 ML IV SCH (09:00)
[2018-05-11 13:00] VITALS: BP 142/60
[2018-05-11] MEDS ORDERED: ALUM & MAG HYDROX-SIMETH LIQ(MAALOX) 30 ML PO ONE ×2 (16:15→19:45)
[2018-05-11 17:00] VITALS: BP 150/70
[2018-05-11] MEDS ORDERED: PANTOPRAZOLE 40 MG TAB PO ONE (20:15)
[2018-05-11 22:00] VITALS: BP 155/78
[2018-05-12 05:00] VITALS: BP 145/68
[2018-05-12 05:53] LABS: Basophils # (auto) 0.1 uL; Basophils % (auto) 0.9 % (0.0-2.0); Eosinophils # (auto) 0.1 uL; Eosinophils % (auto) 0.5 % (0.0-7.0); Hematocrit 34.3 % (36.0-46.0); Hemoglobin 11.5 g/dL (12.2-16.2); Lymphocytes # (auto) 0.9 uL; Lymphocytes % (auto) 8.2 % (10.0-50.0); Mean Corpuscular Hemoglobin 31.4 pg (28.0-32.0); Mean Corpuscular Hgb Conc. 33.4 g/dL (32.0-36.0); Monocytes # (auto) 0.8 uL; Neutrophils # (auto) 9.1 uL; Neutrophils % (auto) 83.4 % (37.0-80.0); Platelet Count (auto) 209 10^3/uL (140-450); Red Blood Cells 3.65 10^6/uL (4.0-5.20); Red Cell Distribution Width 13.8 % (11.8-14.3); White Blood Cell 10.9 10^3/uL (4.4-10.8)
[2018-05-12 06:16] LABS: Albumin 2.6 g/dL (3.4-5.0); BUN/Creatinine Ratio 19.8; Calcium 8.5 mg/dL (8.5-10.1)
[2018-05-12 06:18] LABS: Bilirubin, Total 1.1 mg/dL (0.2-1.0); Total Protein 6.4 g/dL (6.4-8.2)
[2018-05-12 08:00] VITALS: BP 156/69
[2018-05-12] MEDS ORDERED: POLYETHYLENE GLYCOL 17 GM PWDR PO PRN (09:30)
[2018-05-12] MEDS ORDERED: BISACODYL 10 MG RECT SUPP PR ONE (09:30)
[2018-05-12] MEDS ORDERED: FUROSEMIDE 20 MG TAB PO SCH (10:00)
[2018-05-12] MEDS ORDERED: PANTOPRAZOLE 40 MG TAB PO SCH (10:00)
[2018-05-12] MEDS ORDERED: amLODIPine BESYLATE 5 MG TAB PO SCH (10:00)
[2018-05-12] MEDS ORDERED: CHOLECALCIFEROL (VITD3) 1,000 UNIT TAB PO SCH (10:00)
[2018-05-12] MEDS ORDERED: POTASSIUM CHLORIDE 8 MEQ TAB PO SCH (10:00)
[2018-05-12] MEDS ORDERED: CITALOPRAM HYDROBR 20 MG TAB PO SCH (10:00)
[2018-05-12] MEDS ORDERED: SERTRALINE HCL 50 MG TAB PO SCH (10:00)
[2018-05-12] MEDS ORDERED: buPROPion HCL 75 MG TAB PO SCH (14:00)
[2018-05-12 17:05] VITALS: BP 146/65
[2018-05-12] MEDS ORDERED: ATORVASTATIN 20 MG TAB PO SCH (22:00)
== END 2018-05-12 18:35 | disposition home or self-care (01) | DRG 917 ==
LOC: EDBD 12:51 → ER 12:51 → TELE 12:52 → TELE-CENTR 05-09 20:44
PROVIDERS: ADMIT Internal Medicine; ATTEND Internal Medicine
DX: T40.602A Poisoning by unspecified narcotics, intentional self-harm, initial encounter (principal); N17.0 Acute kidney failure with tubular necrosis; I21.4 Non-ST elevation (NSTEMI) myocardial infarction; F32.1 Major depressive disorder, single episode, moderate; F11.20 Opioid dependence, uncomplicated; N18.4 Chronic kidney disease, stage 4 (severe); E87.2 Acidosis; E86.0 Dehydration; I12.9 Hypertensive chronic kidney disease with stage 1 through stage 4 chronic kidney disease, or unspecified chronic kidney disease; J44.9 Chronic obstructive pulmonary disease, unspecified; Z99.81 Dependence on supplemental oxygen; K21.9 Gastro-esophageal reflux disease without esophagitis; F41.9 Anxiety disorder, unspecified; E87.6 Hypokalemia; D64.9 Anemia, unspecified; E78.5 Hyperlipidemia, unspecified; F03.90 Unspecified dementia, unspecified severity, without behavioral disturbance, psychotic disturbance, mood disturbance, and anxiety; I73.9 Peripheral vascular disease, unspecified; I25.10 Atherosclerotic heart disease of native coronary artery without angina pectoris; I70.0 Atherosclerosis of aorta; I44.7 Left bundle-branch block, unspecified; Z82.49 Family history of ischemic heart disease and other diseases of the circulatory system; I25.2 Old myocardial infarction; Z82.5 Family history of asthma and other chronic lower respiratory diseases; Z91.5 Personal history of self-harm; Y92.89 Other specified places as the place of occurrence of the external cause; Z88.2 Allergy status to sulfonamides
CPT/HCPCS: 36415; 71045; 76775; 80048; 80053; 80307; 80320; 80329; 81001; 82306; 82570; 83735; 83970; 84100; 84300; 84484; 85025; 87086; 93005; 93306; 96361; 96374; 97163; 99291; G0378; J0696; J7060

== ENCOUNTER 2018-08-15 00:14 | Emergency (ER) | payer OTHER ==
[~2018-08-15] VITALS: Ht 165.1 cm; Wt 77.6 kg
[2018-08-15 01:09] VITALS: BP 177/53
[2018-08-15 01:40] LABS: Basophils # (auto) 0 uL; Basophils % (auto) 0.1 % (0.0-2.0); Eosinophils # (auto) 0 uL; Hematocrit 34.6 % (36.0-46.0); Hemoglobin 11.3 g/dL (12.2-16.2); Lymphocytes # (auto) 0.6 uL; Lymphocytes % (auto) 4.6 % (10.0-50.0); Mean Corpuscular Hemoglobin 30.5 pg (28.0-32.0); Mean Corpuscular Hgb Conc. 32.6 g/dL (32.0-36.0); Mean Corpuscular Volume 93.5 fL (80.0-100.0); Monocytes # (auto) 0.2 uL; Monocytes % (auto) 1.6 % (0.0-12.0); Neutrophils # (auto) 11.9 uL; Neutrophils % (auto) 93.7 % (37.0-80.0); Platelet Count (auto) 275 10^3/uL (140-450); Red Cell Distribution Width 14.2 % (11.8-14.3); White Blood Cell 12.7 10^3/uL (4.4-10.8)
[2018-08-15 02:01] LABS: Albumin 3.2 g/dL (3.4-5.0); Calcium 9.1 mg/dL (8.5-10.1); Potassium 4.8 mmol/L (3.5-5.1)
[2018-08-15 02:05] LABS: Bilirubin, Total 0.5 mg/dL (0.2-1.0); Total Protein 8.3 g/dL (6.4-8.2)
== END 2018-08-15 05:09 | disposition left against medical advice (07) ==
LOC: ER 00:14
DX: R06.02 Shortness of breath (principal); Z53.21 Procedure and treatment not carried out due to patient leaving prior to being seen by health care provider
CPT/HCPCS: 36415; 71046; 80053; 83880; 84484; 85025; 93005

== ENCOUNTER 2018-09-18 21:05 | Emergency (ER) | payer OTHER ==
[~2018-09-18] VITALS: Ht 165.1 cm; Wt 73.0 kg
[2018-09-18 21:08] VITALS: BP 149/54
== END 2018-09-19 03:33 | disposition home or self-care (01) ==
LOC: ER 21:08
DX: S61.212A Laceration without foreign body of right middle finger without damage to nail, initial encounter (principal); J44.9 Chronic obstructive pulmonary disease, unspecified; E78.5 Hyperlipidemia, unspecified; I10 Essential (primary) hypertension; I25.2 Old myocardial infarction; Z88.2 Allergy status to sulfonamides; Z79.899 Other long term (current) drug therapy; W26.0XXA Contact with knife, initial encounter; Y93.89 Activity, other specified; Y99.8 Other external cause status; Y92.89 Other specified places as the place of occurrence of the external cause
CPT/HCPCS: 12001

== ENCOUNTER 2020-05-08 09:37 | Emergency (ER) | payer MEDICAID, OTHER ==
[~2020-05-08] VITALS: Ht 165.1 cm; Wt 68.9 kg
[~2020-05-08 09:37] MED LIST changes: -AMLO5TAB13 PO; +AMLO5TAB15 PO; +MAGN400T40 OR; -MAGN400T5 OR
[2020-05-08 10:26] LABS: Basophils # (auto) 0.1 10 ^3/uL (0-0.2); Basophils % (auto) 0.8 % (0.0-2.0); Eosinophils # (auto) 0.2 10 ^3/uL (0-0.8); Eosinophils % (auto) 2.5 % (0.0-7.0); Hematocrit 37.3 % (36.0-46.0); Hemoglobin 12.4 g/dL (12.2-16.2); Lymphocytes # (auto) 1.1 10 ^3/uL (0.4-5.4); Lymphocytes % (auto) 14.9 % (10.0-50.0); Mean Corpuscular Hemoglobin 32.3 pg (28.0-32.0); Mean Corpuscular Hgb Conc. 33.3 g/dL (32.0-36.0); Mean Corpuscular Volume 97.1 fL (80.0-100.0); Monocytes # (auto) 0.6 10 ^3/uL (0-1.3); Monocytes % (auto) 7.3 % (0.0-12.0); Neutrophils # (auto) 5.7 10 ^3/uL (1.6-8.6); Neutrophils % (auto) 74.5 % (37.0-80.0); Platelet Count (auto) 299 10^3/uL (140-450); Red Blood Cells 3.84 10^6/uL (4.0-5.20); White Blood Cell 7.6 10^3/uL (4.4-10.8)
[2020-05-08 12:01] LABS: Urine Bacteria NONE SEEN /hpf (None Seen); Urine Blood Negative /uL (Negative); Urine Specific Gravity 1.013 (1.001-1.035); Urine WBC 1 /hpf (0 - 5)
[2020-05-08 12:34] LABS: Sodium 141 mmol/L (136-145)
[2020-05-08 12:35] LABS: Alanine Aminotransferase 19 U/L (13-56); Albumin 3.1 g/dL (3.4-5.0); Alkaline Phosphatase 80 U/L (45-117); Anion Gap 6 (5-15); Aspartate Aminotransferase 23 U/L (15-37); Bilirubin, Total 0.7 mg/dL (0.2-1.0); Blood Urea Nitrogen 41 mg/dL (7-18); Calcium 7.8 mg/dL (8.5-10.1); Carbon Dioxide 20 mmol/L (21-32); Chloride 115 mmol/L (98-107); GFR African American 57 mL/min; GFR Non-African American 47 mL/min; Glucose 80 mg/dL (74-106); Magnesium 2.1 mg/dL (1.6-2.6); Potassium 3.8 mmol/L (3.5-5.1)
[2020-05-08 12:36] VITALS: BP 172/52
[2020-05-08] MEDS ORDERED: IBUPROFEN 600 MG TAB PO ONE (13:30)
[2020-05-08] MEDS ORDERED: HYDROcodone-ACET 5/325MG TAB PO ONE (13:30)
== END 2020-05-08 15:03 | disposition home or self-care (01) ==
LOC: ER 09:37
DX: S20.211A Contusion of right front wall of thorax, initial encounter (principal); I12.9 Hypertensive chronic kidney disease with stage 1 through stage 4 chronic kidney disease, or unspecified chronic kidney disease; N18.31 Chronic kidney disease, stage 3a; E44.1 Mild protein-calorie malnutrition; R51.9 Headache, unspecified; M54.2 Cervicalgia; R10.11 Right upper quadrant pain; J44.9 Chronic obstructive pulmonary disease, unspecified; E78.00 Pure hypercholesterolemia, unspecified; I25.2 Old myocardial infarction; F03.90 Unspecified dementia, unspecified severity, without behavioral disturbance, psychotic disturbance, mood disturbance, and anxiety; Z68.25 Body mass index [BMI] 25.0-25.9, adult; Z79.899 Other long term (current) drug therapy; Z88.2 Allergy status to sulfonamides; W18.39XA Other fall on same level, initial encounter; Y93.89 Activity, other specified; Y92.090 Kitchen in other non-institutional residence as the place of occurrence of the external cause; Y99.8 Other external cause status
CPT/HCPCS: 36415; 70450; 71045; 72125; 74176; 80053; 81001; 83735; 84484; 85025; 93005

== ENCOUNTER 2022-10-05 11:15 | Inpatient (IN) | payer OTHER ==
[~2022-10-05] VITALS: Ht 165.1 cm; Wt 68.0 kg
[~2022-10-05 11:15] MED LIST changes: +AMLO-489 PO; -AMLO5TAB15 PO; +BUPR75TA10 PO; -BUPR75TA9 PO
[2022-10-05] MEDS ORDERED: ONDANSETRON HCL 4 MG/2 ML VIAL IV ONE (11:30)
[2022-10-05] MEDS ORDERED: MORPHINE SULFATE 4 MG/ML SYR/VIAL IV ONE (11:30)
[2022-10-05 11:50] LABS: Basophils # (auto) 0.1 10 ^3/uL (0-0.2); Basophils % (auto) 0.9 % (0.0-2.0); Eosinophils # (auto) 0.2 10 ^3/uL (0-0.8); Eosinophils % (auto) 2.5 % (0.0-7.0); Hematocrit 37.4 % (36.0-46.0); Hemoglobin 12.3 g/dL (12.2-16.2); Lymphocytes # (auto) 1.4 10 ^3/uL (0.4-5.4); Lymphocytes % (auto) 14.7 % (10.0-50.0); Mean Corpuscular Hemoglobin 31.1 pg (28.0-32.0); Mean Corpuscular Hgb Conc. 32.8 g/dL (32.0-36.0); Mean Corpuscular Volume 94.7 fL (80.0-100.0); Monocytes # (auto) 0.9 10 ^3/uL (0-1.3); Monocytes % (auto) 9.2 % (0.0-12.0); Neutrophils # (auto) 7.1 10 ^3/uL (1.6-8.6); Neutrophils % (auto) 72.7 % (37.0-80.0); Nucleated Red Blood Cells % 0.1 %; Red Blood Cells 3.95 10^6/uL (4.0-5.20); Red Cell Distribution Width 14.4 % (11.8-14.3); White Blood Cell 9.7 10^3/uL (4.4-10.8)
[2022-10-05 12:03] LABS: INR 1.01 (0.9-1.15); Partial Thromboplastin Time 23.7 sec (24.6-33.4)
[2022-10-05 12:14] LABS: Albumin 3.3 g/dL (3.4-5.0); BUN/Creatinine Ratio 54.6 (10.0-20.0); Calcium 8.8 mg/dL (8.5-10.1); Magnesium 1.9 mg/dL (1.6-2.6); Potassium 4.4 mmol/L (3.5-5.1)
[2022-10-05 12:37] LABS: Bilirubin, Total 0.4 mg/dL (0.2-1.0); Total Protein 7.1 g/dL (6.4-8.2)
[2022-10-05] MEDS ORDERED: IPRATROPIUM BROM 0.5 MG/2.5ML INH SOL NEB PRN (14:30)
[2022-10-05] MEDS ORDERED: ALBUTEROL SULF 2.5 MG/0.5ML(0.5%) NEB SOLN NEB PRN (14:30)
[2022-10-05] MEDS ORDERED: FUROSEMIDE 20 MG/2 ML VIAL IV ONE (14:30)
[2022-10-05] MEDS ORDERED: hydrALAZINE HCL 20 MG/ML VL IV PRN (14:30)
[2022-10-05] MEDS ORDERED: NITROGLYCERIN 0.4 MG SL TAB SL PRN (14:30)
[2022-10-05] MEDS ORDERED: SODIUM CHLORIDE 0.9% 1,000 ML IV ONE (14:30)
[2022-10-05] MEDS ORDERED: amLODIPine BESYLATE 5 MG TAB PO ONE (14:30)
[2022-10-05] MEDS ORDERED: HYDROcodone-ACET 5/325MG TAB PO PRN (14:30)
[2022-10-05] MEDS ORDERED: ACETAMINOPHEN 325 MG TAB PO PRN (14:30)
[2022-10-05] MEDS ORDERED: PANTOPRAZOLE 40 MG/10 ML VIAL INJ IV ONE (14:30)
[2022-10-05] MEDS ORDERED: MORPHINE SULFATE INJ 2 MG/ml SYRG IV PRN ×2 (14:30)
[2022-10-05 14:51] VITALS: BP 180/52
[2022-10-05] MEDS ORDERED: ENOXAPARIN SOD 80 MG/0.8ML SYRINGE SC ONE (15:00)
[2022-10-05 15:27] LABS: Cholesterol 140 mg/dL (< 200); Triglycerides 71 mg/dL (< 150)
[2022-10-05 15:30] LABS: HDL Cholesterol 55 mg/dL (40-59); LDL Cholesterol 84 mg/dL (< 100)
[2022-10-05] MEDS: ATORVASTATIN 20 MG TAB PO SCH (18:40)
[2022-10-05] MEDS: CARVEDILOL 3.125 MG TAB PO SCH (22:00)
[2022-10-05] MEDS: RANOLAZINE ER 500 MG TAB PO SCH (22:23)
[2022-10-06 05:05] VITALS: BP 134/42
[2022-10-06 08:31] LABS: Basophils # (auto) 0.1 10 ^3/uL (0-0.2); Basophils % (auto) 0.9 % (0.0-2.0); Eosinophils # (auto) 0.4 10 ^3/uL (0-0.8); Eosinophils % (auto) 4.2 % (0.0-7.0); Hemoglobin 11.5 g/dL (12.2-16.2); Lymphocytes # (auto) 1.2 10 ^3/uL (0.4-5.4); Lymphocytes % (auto) 14.2 % (10.0-50.0); Mean Corpuscular Hemoglobin 32.4 pg (28.0-32.0); Mean Corpuscular Hgb Conc. 33.8 g/dL (32.0-36.0); Mean Corpuscular Volume 95.8 fL (80.0-100.0); Monocytes # (auto) 0.6 10 ^3/uL (0-1.3); Monocytes % (auto) 6.7 % (0.0-12.0); Neutrophils # (auto) 6.2 10 ^3/uL (1.6-8.6); Red Blood Cells 3.55 10^6/uL (4.0-5.20); Red Cell Distribution Width 14.4 % (11.8-14.3); White Blood Cell 8.4 10^3/uL (4.4-10.8)
[2022-10-06 08:52] LABS: Albumin 2.9 g/dL (3.4-5.0); BUN/Creatinine Ratio 44.9 (10.0-20.0); Calcium 8.4 mg/dL (8.5-10.1); Potassium 4.6 mmol/L (3.5-5.1)
[2022-10-06 08:54] LABS: Bilirubin, Total 0.6 mg/dL (0.2-1.0); Total Protein 6.3 g/dL (6.4-8.2)
[2022-10-06 09:00] VITALS: BP 154/44
[2022-10-06] MEDS: CARVEDILOL 3.125 MG TAB PO SCH ×2 (10:00→21:42)
[2022-10-06] MEDS: POTASSIUM CHL 10 Meq TABLET PO SCH (10:00)
[2022-10-06] MEDS ORDERED: PANTOPRAZOLE 40 MG/10 ML VIAL INJ IV SCH (10:00)
[2022-10-06] MEDS: amLODIPine BESYLATE 5 MG TAB PO SCH (10:00)
[2022-10-06] MEDS ORDERED: amLODIPine BESYLATE 5 MG TAB PO SCH (10:00)
[2022-10-06] MEDS: FUROSEMIDE 20 MG/2 ML VIAL IV SCH (10:31)
[2022-10-06] MEDS: RANOLAZINE ER 500 MG TAB PO SCH ×2 (10:32→21:43)
[2022-10-06] MEDS: ENOXAPARIN SOD 30 MG/0.3 ML SYRINGE SC SCH ×2 (10:32→10:39)
[2022-10-06] MEDS: ASPirin 81 mg TAB PO SCH (10:33)
[2022-10-06 13:00] VITALS: BP 147/46
[2022-10-06 16:33] VITALS: BP 129/67
[2022-10-06] MEDS: ATORVASTATIN 20 MG TAB PO SCH (17:23)
[2022-10-06 21:30] VITALS: BP 142/48
[2022-10-07 04:30] VITALS: BP 167/57
[2022-10-07 05:00] VITALS: BP 115/55
[2022-10-07] MEDS ORDERED: AMLO-489 PO (07:39)
[2022-10-07 09:00] VITALS: BP 156/42
[2022-10-07] MEDS: CARVEDILOL 3.125 MG TAB PO SCH (09:47)
[2022-10-07] MEDS: POTASSIUM CHL 10 Meq TABLET PO SCH (09:48)
[2022-10-07] MEDS: FUROSEMIDE 20 MG/2 ML VIAL IV SCH (10:00)
[2022-10-07] MEDS: ASPirin 81 mg TAB PO SCH (10:01)
[2022-10-07] MEDS: RANOLAZINE ER 500 MG TAB PO SCH (10:06)
[2022-10-07] MEDS: amLODIPine BESYLATE 5 MG TAB PO SCH (10:06)
[2022-10-07 10:26] VITALS: BP 156/42
== END 2022-10-07 13:44 | disposition home health service (06) | DRG 305 ==
LOC: ER 11:15 → EDBD 11:15 → TELE 14:39 → TELE-WESTW 10-06 04:45
PROVIDERS: ADMIT Registered Nurse; ATTEND Internal Medicine
DX: I16.1 Hypertensive emergency (principal); I24.9 Acute ischemic heart disease, unspecified; I25.110 Atherosclerotic heart disease of native coronary artery with unstable angina pectoris; J44.9 Chronic obstructive pulmonary disease, unspecified; E78.5 Hyperlipidemia, unspecified; I44.7 Left bundle-branch block, unspecified; N18.30 Chronic kidney disease, stage 3 unspecified; I73.9 Peripheral vascular disease, unspecified; I12.9 Hypertensive chronic kidney disease with stage 1 through stage 4 chronic kidney disease, or unspecified chronic kidney disease; R77.8 Other specified abnormalities of plasma proteins; F32.A Depression, unspecified; F41.9 Anxiety disorder, unspecified; R03.0 Elevated blood-pressure reading, without diagnosis of hypertension; Z20.822 Contact with and (suspected) exposure to COVID-19; E86.0 Dehydration; Z96.651 Presence of right artificial knee joint; F03.90 Unspecified dementia, unspecified severity, without behavioral disturbance, psychotic disturbance, mood disturbance, and anxiety; Z87.891 Personal history of nicotine dependence; Z79.82 Long term (current) use of aspirin; Z82.49 Family history of ischemic heart disease and other diseases of the circulatory system; Z82.5 Family history of asthma and other chronic lower respiratory diseases; I25.2 Old myocardial infarction; Z93.6 Other artificial openings of urinary tract status; Z88.2 Allergy status to sulfonamides
CPT/HCPCS: 36415; 71045; 80053; 80061; 83036; 83735; 83880; 84443; 84484; 85025; 85379; 85610; 85730; 87081; 87426; 93005; 93306; 96374; 96375; C9113; G0378; J2405

== ENCOUNTER 2024-06-13 21:32 | Inpatient (IN) | payer MEDICARE, MEDICAID ==
[~2024-06-13] VITALS: Ht 157.5 cm; Wt 57.5 kg
[~2024-06-13 21:32] MED LIST changes: +ALBU2TAB11 PO; -ALBU2TAB4 PO; -AMLO-489 PO; +AMLO1TAB22 PO; -BUPR75TA10 PO; +BUPR75TA96 PO; +POTA-36 PO; -POTA10TA51 PO
--- NOTE | 2024-06-13 22:32 | DVH ---
CHEST RADIOGRAPH Indication: gen weak Technique: Single frontal view of the chest was obtained Comparison: XY CHEST PORTABLE on DOS: 10/05/22, CHEST PORTABLE on DOS: 05/08/20 FINDINGS: Lines and Tubes: None Lungs: Clear Pleura: No effusion. No pneumothorax. Cardiomediastinal contours: Unremarkable Bones: Unremarkable IMPRESSION: 1. Clear lungs.
--- NOTE | 2024-06-13 22:35 | DVH ---
EXAM: CT HEAD WITHOUT CONTRAST INDICATION: aloc TECHNIQUE: CT of the head without intravenous contrast. Radiation Dose Information: CT Dose: CTDI volume is 61.35 mGy. Dose-length product is 983.25 mGy*cm The dose indicators for CT are the volume Computed Tomography (CT) Dose Index (CTDIvol) and the Dose Length Product (DLP), and are measured in units of mGy and mGy-cm, respectively. These indicators are not patient dose, but values generated from the CT scanner acquisition factors. The report includes radiation exposure data for exposures received during this examination. COMPARISON: CT ABD PELVIS WO CONTRAST on DOS: 05/08/20, CERVICAL WITHOUT CONTRAST on DOS: 05/08/20, H EAD WITHOUT CONTRAST on DOS: 05/08/20 FINDINGS: There is no evidence of acute intracranial hemorrhage, extra-axial collection, mass effect, midline s hift, herniation or hydrocephalus. The ventricles, sulci and cisterns are age appropriate. The sawant-white differentiation is intact. Patchy periventricular and subcortical white matter hypoattenuation is nonspecific but may be related to small vessel ischemic disease. The visualized paranasal sinuses and mastoid air cells are clear. The surrounding soft tissues and osseous structures are unremarkable. IMPRESSION: 1. No acute intracranial hemorrhage. 2. No CT findings of territorial ischemia.
[2024-06-13 22:44] LABS: Basophils # (auto) 0.1 10 ^3/uL (0-0.2); Basophils % (auto) 0.7 % (0.0-2.0); Eosinophils # (auto) 0.1 10 ^3/uL (0-0.8); Eosinophils % (auto) 1.4 % (0.0-7.0); Hematocrit 34.6 % (36.0-46.0); Hemoglobin 11.5 g/dL (12.2-16.2); Lymphocytes # (auto) 1.6 10 ^3/uL (0.4-5.4); Lymphocytes % (auto) 15.9 % (10.0-50.0); Mean Corpuscular Hemoglobin 30.1 pg (28.0-32.0); Mean Corpuscular Hgb Conc. 33.1 g/dL (32.0-36.0); Mean Corpuscular Volume 90.9 fL (80.0-100.0); Monocytes # (auto) 0.6 10 ^3/uL (0-1.3); Monocytes % (auto) 5.9 % (0.0-12.0); Neutrophils # (auto) 7.5 10 ^3/uL (1.6-8.6); Neutrophils % (auto) 76.1 % (37.0-80.0); Platelet Count (auto) 312 10^3/uL (140-450); Red Cell Distribution Width 15.2 % (11.8-14.3); White Blood Cell 9.8 10^3/uL (4.4-10.8)
[2024-06-13] MEDS: MORPHINE SULFATE 4 MG/ML SYR/VIAL IV ONE (22:45)
[2024-06-13 23:05] VITALS: PULSE 66; RESP 12
[2024-06-13 23:10] LABS: Alanine Aminotransferase < 9 U/L (7-40); Albumin 4.2 g/dL (3.2-4.8); Alkaline Phosphatase 89 U/L (46-116); Anion Gap 9 (5-15); Aspartate Aminotransferase 19 U/L (13-40); BUN/Creatinine Ratio 28.2 (10.0-20.0); Bilirubin, Total 0.6 mg/dL (0.2-1.0); Blood Urea Nitrogen 46 mg/dL (9-23); Carbon Dioxide 26 mmol/L (20-31); Chloride 103 mmol/L (98-107); Glucose 120 mg/dL (74-106); Potassium 4.1 mmol/L (3.5-5.1); Sodium 138 mmol/L (136-145); Total Protein 7.4 g/dL (5.7-8.2)
[2024-06-14] VITALS (13 sets, daily range): BP systolic 142–179; BP diastolic 59–70; PULSE 52–87; RESP 14–19; TEMP 98–99.2; O2SAT 92–100
--- NOTE | 2024-06-14 00:51 | ED.PDOC ---
History of Present Illness HPI Comments 83-year-old female brought in by daughters. Daughter states that patient was picked up from [facility] nursing facility. Patient has been more agitated over the last month. They have noticed a decline in her cognitive status. Daughter states that they are constantly being called from the skilled facility because patient becomes combative with caregivers. She has been more confused. They state patient was also been having hallucinations. Because family lives in the [facility] they remove patient from the skilled facility and brought her to this ER for evaluation. They are unable to care for the patient at home as she was combative with them and they have no other help. Chief Complaint: General Weakness Time Seen by MD: 21:58 Primary Care Provider: UNK Reviewed Notes: Nurses Notes Allergies: Coded Allergies: Sulfa Antibiotics (Verified Allergy, Unknown, 08/15/18) Home Meds Active Scripts Amlodipine Besylate (Amlodipine Besylate) 5 Mg Tab, 10 MG PO DAILY for 30 Days, MG Prov:KRISHNA DELUNA MD 10/07/22 Reported Medications Albuterol Sulfate (Albuterol Sulfate) 2 Mg Tab, 2 MG PO Q6HP PRN for SHORTNESS OF BREATH, MG 04/01/17 Cholecalciferol (VITAMIN D3) 2,000 Unit Tab, 1 TAB PO DAILY, #30 TAB 5 Refills 04/01/17 Magnesium Oxide (MAGNESIUM OXIDE) 400 Mg Tab, 400 MG OR, TAB 04/01/17 Pantoprazole Sodium Sesquihydr (Protonix) 40 Mg Tab, 40 MG PO DAILY, #30 TAB 04/01/17 Potassium Chloride (POTASSIUM CHLORIDE CR) 10 Meq Tb, 8 MEQ PO DAILY 04/01/17 Citalopram Hydrobromide (Citalopram Hydrobromide) 20 Mg Tab, 20 MG PO DAILY for 30 Days, MG 04/01/17 Bupropion Hcl (Bupropion Hcl) 75 Mg Tab, 75 MG PO Q8HR for 30 Days 04/01/17 Ranolazine (Ranexa) 500 Mg Tab, 500 MG PO BID, TAB 04/01/17 Furosemide (Furosemide) 20 Mg Tab, 20 MG PO DAILY for 30 Days, MG 04/01/17 Atorvastatin Calcium (ATORVASTATIN CALCIUM) 40 Mg Tab, 1 TAB PO QPM, #90 TAB 3 Refills 04/01/17 Information Source: Patient Mode of Arrival: Wheelchair Past Medical History PAST MEDICAL HISTORY: Anxiety, COPD, Dementia, Depression, High Lipids, HTN, ND Surgical History: Tonsillectomy [employer] History: No Pertinent [employer] History Family History Family History: Reviewed,noncontributory to illness Social History Smoker: Non-Smoker Alcohol: Denies ETOH Use Drugs: Denies Drug Use Lives In: Home Unable to Obtain due to: Altered Mental Status Physical Exam General Appearance: No Apparent Distress, Normal HEENT: Normal ENT Inspection, Pharynx Normal, TMs Normal Neck: Full Range of Motion, Non-Tender, Normal, Normal Inspection Respiratory: Chest Non-Tender, Lungs Clear, No Accessory Muscle Use, No Respiratory Distress, Normal Breath Sounds Cardiovascular: No Edema, No JVD, No Murmur, No Gallop, Normal Peripheral Pulses, Regular Rate/Rhythm Breast Exam: Deferred Gastrointestinal: No Organomegaly, Non Tender, No Pulsatile Mass, Normal Bowel Sounds, Soft Genitalia: Deferred Pelvic: Deferred Rectal: Deferred Extremities: Normal capillary refill, Normal inspection, No pedal edema Musculoskeletal : Apperance: Normal Neurologic: Disoriented Cerebellar Function: Unable to Test Reflexes: NOT DONE Skin: Dry, Normal Color, Warm Lymphatic: No Adenopathy Was a procedure done? Was a procedure done?: No Differential Dx Considerations may include: Pneumonia, urosepsis, CHF exacerbation, dementia, Alzheimer's, failure to thrive, metabolic encephalopathy X-Ray, Labs, Meds, VS Vital Signs Date Time Temp Pulse Resp B/P (MAP) Pulse Ox O2 Delivery O2 Flow Rate FiO2 06/13/24 23:05 98.0 66 15 177/62 (100) 92 98.0 06/13/24 23:05 66 12 Room Air* 0 21 06/13/24 21:38 99.2 70 20 135/64 (87) 92 Lab Test 06/13/24 23:17 06/13/24 22:27 Range/Units Troponin I High Sensitivity 40 *H 44 *H </=34 ng/L White Blood Count 9.8 4.4-10.8 10^3/uL Red Blood Count 3.80 L 4.0-5.20 10^6/uL Hemoglobin 11.5 L 12.2-16.2 g/dL Hematocrit 34.6 L 36.0-46.0 % Mean Corpuscular Volume 90.9 80.0-100.0 fL Mean Corpuscular Hemoglobin 30.1 28.0-32.0 pg Mean Corpuscular Hemoglobin Concent 33.1 32.0-36.0 g/dL Red Cell Distribution Width 15.2 H 11.8-14.3 % Platelet Count 312 140-450 10^3/uL Mean Platelet Volume 8.0 6.9-10.8 fL Neutrophils (%) (Auto) 76.1 37.0-80.0 % Lymphocytes (%) (Auto) 15.9 10.0-50.0 % Monocytes (%) (Auto) 5.9 0.0-12.0 % Eosinophils (%) (Auto) 1.4 0.0-7.0 % Basophils (%) (Auto) 0.7 0.0-2.0 % Neutrophils # (Auto) 7.5 1.6-8.6 10 ^3/uL Lymphocytes # (Auto) 1.6 0.4-5.4 10 ^3/uL Monocytes # (Auto) 0.6 0-1.3 10 ^3/uL Eosinophils # (Auto) 0.1 0-0.8 10 ^3/uL Basophils # (Auto) 0.1 0-0.2 10 ^3/uL Nucleated Red Blood Cells 0.0 % Sodium Level 138 136-145 mmol/L Potassium Level 4.1 3.5-5.1 mmol/L Chloride Level 103 98-107 mmol/L Carbon Dioxide Level 26 20-31 mmol/L Anion Gap 9 5-15 Blood Urea Nitrogen 46 H 9-23 mg/dL Creatinine 1.63 H 0.550-1.02 mg/dL Glomerular Filtration Rate Calc 31 >90 mL/min BUN/Creatinine Ratio 28.2 H 10.0-20.0 Serum Glucose 120 H 74-106 mg/dL Calcium Level 10.0 8.7-10.4 mg/dL Total Bilirubin 0.6 0.2-1.0 mg/dL Aspartate Amino Transferase (AST) 19 13-40 U/L Alanine Aminotransferase (ALT) < 9 7-40 U/L Alkaline Phosphatase 89 46-116 U/L B-Type Natriuretic Peptide 1449.71 0-100 pg/mL Total Protein 7.4 5.7-8.2 g/dL Albumin 4.2 3.2-4.8 g/dL X-Ray, Labs, Meds, VS Comment Patient will be admitted for altered level consciousness/metabolic encephalopathy Patient also has CHF exacerbation with elevated BNP Patient's troponins are mildly elevated possibly due to demand ischemia Branch catheter placed, urinalysis pending results Patient will be started on 20 mg Lasix. Recommend social service consult upon discharge Recommend neurology consult in the morning to assess for dementia/Alzheimer's Time of 1ST Reevaluation: 00:50 Reevaluation 1ST: Unchanged Patient Education/Counseling: Diagnosis, Treatment Family Education/Counseling: Diagnosis Departure 1 Departure Time of Disposition: 00:48 Impression: Primary Impression: CHF (congestive heart failure) Qualified Codes: I50.22 - Chronic systolic (congestive) heart failure Additional Impressions: Acute metabolic encephalopathy Fluid overload Qualified Codes: E87.70 - Fluid overload, unspecified Elevated troponin Disposition: ADMITTED INPATIENT Condition: Fair Critical Care Note Critical Care Time?: No Stability Stability form required: No Heart Score Heart Score: Heart Score Response (Comments) Value History N/A 0 EKG N/A 0 Age N/A 0 Risk Factors N/A 0 Troponin N/A 0 Total 0 VINCE SINGHP Jun 14, 2024 00:51
[2024-06-14 00:53] LABS: Urine Bacteria None Seen /hpf (None Seen)
[2024-06-14] MEDS ORDERED: NITROGLYCERIN 0.4 MG SL TAB SL PRN (01:00)
[2024-06-14] MEDS ORDERED: MORPHINE SULFATE INJ 2 MG/ml SYRG IV PRN (01:00)
[2024-06-14 01:15] LABS: Urine Blood Negative /uL (Negative); Urine Clarity Clear (Clear); Urine Color Light-Yellow (Yellow); Urine Protein, UAD TRACE (Negative); Urine Specific Gravity 1.012 (1.001-1.035); Urine Urobilinogen Normal (Negative); Urine WBC <1 /hpf (0 - 5)
[2024-06-14] MEDS: hydrALAZINE HCL 20 MG/ML VL IV ONE (01:39)
[2024-06-14] MEDS: FUROSEMIDE 20 MG/2 ML VIAL IV ONE (01:40)
[2024-06-14] MEDS: amLODIPine BESYLATE 5 MG TAB PO ONE (02:54)
--- NOTE | 2024-06-14 03:00 | DVHHPRES ---
History of Present Illness Resident Creating Document: DEONTE TEAGUE RESIDENT History of Present Illness Ms. Vargas, a 83-year-old female with past medical history significant for hypertension, peripheral arterial disease status post stents, CKD, COPD dyslipidemia, anxiety, depression, dementia, CAD s/p multiple interventions, LVH, left bundle branch block, and past surgical history significant for right- sided nephrostomy, Bilateral lower extremity bypass procedures, cataracts, right knee replacement and tonsillectomy, came with past 3-4 weeks of generalized weakness, malaise, and behavioral disturbance noted by the family. Patient is poor historian, collateral history from family/daughters reveal no fever, chills, sick contact, travel, food indiscretion, medical noncompliance or any other contributory factors. Patient is admitted in hospital in telemetry unit for further evaluation and management although overall outcome is limited due to advanced age, dementia and disease comorbidities. Cardiovascular: CAD, CHF, HTN, hyperipidemia Pulmonary: COPD PATIENT REGISTRATION REPRESENTATIVE: TIA GI: Constipation, GERD Heme/Onc: Anemia NOS Psych: Anxiety, Depression Musculoskeletal: Osteoarthritis ENT: Other (Hard of hearing) Renal/: Chronic renal insuff Past Surgical History: Cataract Removal Family History Likely noncontributory to the related hospitalization Smoke: Quit (Prior history of roughly 50 pack-year smoking history) ALCOHOL: none Drugs: None Lives: with Family Domestic Violence: Neg Review of Systems Constitutional: Yes: Malaise Eyes: No: Pain, Vision change, Conjunctivae inflammation, Eyelid inflammation, Other, Redness ENT: No: Ear pain, Ear discharge, Nose pain, Nose discharge, Nose congestion, Mouth pain, Mouth swelling, Throat pain, Throat swelling, Other Respiratory: Cough, Shortness of breath, Sputum Cardiovascular: Chest Pain, Orthopnea, Edema Gastrointestinal: Constipation Genitourinary: No Dysuria, No Frequency, No Incontinence, No Hematuria, No Retention, No Other Musculoskeletal: No: other, neck pain, shoulder pain, arm pain, back pain, hand pain, leg pain, foot pain Skin: Other (Skin lesions likely age related) Neurological: Weakness (Generalized, no focal we will neurological deficit gross noted. Limited examination due to patient's inability to follow majority of the examination commands.) Allergies: Coded Allergies: Sulfa Antibiotics (Verified Allergy, Unknown, 08/15/18) Medications Current Medications Medications Dose Ordered Sig/Parker Route Start Time Stop Time Status Last Admin Dose Admin Nitroglycerin 0.4 mg Q5MINP PRN SL 06/14/24 01:00 Morphine Sulfate 2 mg Q30M PRN IV 06/14/24 01:00 Amlodipine Besylate 10 mg DAILY PO 06/15/24 10:00 Furosemide 20 mg BIDD IV 06/14/24 06:00 Exam Vital Signs Vital Signs Date Time Temp Pulse Resp B/P (MAP) Pulse Ox O2 Delivery O2 Flow Rate FiO2 06/14/24 02:07 99.2 70 12 135/64 (87) 93 99.2 06/13/24 23:05 Room Air* 0 21 Exam multiple skin bruises, patches likely age related. General Appearance: Alert, No acute distress, Other (Looks mildly anxious, nalini es pain or discomfort. ) HEENT: Atraumatic, Mucous membr. moist/pink Respiratory: Clear to auscultation, Normal air movement, Other (Basal rales/crackles) Cardiovascular: Regular rate, Normal S1, Normal S2, No murmurs (Flow murmur) Abdominal: Normal bowel sounds, Soft, No tenderness, No hepatospenomegaly, No masses Extremities: Other (trace bilateral edema which could be due to heart failure/oral amlodipine related) Neuro: Normal tone, Sensation intact, Other (Grossly no focal neurodeficit although long-term memory disturbance persistent, patient is alert, mildly anxious affect yet oriented to self. could not tell basic details or name of dauthers. Extremely difficult to reorient and not able to follow instructions. ) Psych/Mental Status: Mood NL, Other (Denies any homicidal or suicidal ideations. patient is alert yet not oriented ) Labs/Xrays Labs Test 06/14/24 01:10 06/13/24 22:40 06/13/24 22:27 Range/Units Magnesium Level 1.9 1.6-2.6 mg/dL Troponin I High Sensitivity 42 *H </=34 ng/L Thyroid Stimulating Hormone (TSH) 2.42 0.55-4.78 uIU/mL Urine Color Light-yellow Yellow Urine Clarity Clear Clear Urine pH 6.0 5.0-9.0 Urine Specific [place] 1.012 1.001-1.035 Urine Protein Trace H Negative Urine Ketones Negative Negative Urine Blood Negative Negative /uL Urine Nitrite Negative Negative Urine Bilirubin Negative Negative Urine Urobilinogen Normal Negative mg/dL Urine Leukocyte Esterase Negative Negative /uL Urine RBC 1 0 - 4 /hpf Urine WBC <1 0 - 5 /hpf Urine Squamous Epithelial Cells Few <5 /hpf Urine Bacteria None seen None Seen /hpf Urine Glucose Normal Normal mg/dL White Blood Count 9.8 4.4-10.8 10^3/uL Red Blood Count 3.80 L 4.0-5.20 10^6/uL Hemoglobin 11.5 L 12.2-16.2 g/dL Hematocrit 34.6 L 36.0-46.0 % Mean Corpuscular Volume 90.9 80.0-100.0 fL Mean Corpuscular Hemoglobin 30.1 28.0-32.0 pg Mean Corpuscular Hemoglobin Concent 33.1 32.0-36.0 g/dL Red Cell Distribution Width 15.2 H 11.8-14.3 % Platelet Count 312 140-450 10^3/uL Mean Platelet Volume 8.0 6.9-10.8 fL Neutrophils (%) (Auto) 76.1 37.0-80.0 % Lymphocytes (%) (Auto) 15.9 10.0-50.0 % Monocytes (%) (Auto) 5.9 0.0-12.0 % Eosinophils (%) (Auto) 1.4 0.0-7.0 % Basophils (%) (Auto) 0.7 0.0-2.0 % Neutrophils # (Auto) 7.5 1.6-8.6 10 ^3/uL Lymphocytes # (Auto) 1.6 0.4-5.4 10 ^3/uL Monocytes # (Auto) 0.6 0-1.3 10 ^3/uL Eosinophils # (Auto) 0.1 0-0.8 10 ^3/uL Basophils # (Auto) 0.1 0-0.2 10 ^3/uL Nucleated Red Blood Cells 0.0 % Sodium Level 138 136-145 mmol/L Potassium Level 4.1 3.5-5.1 mmol/L Chloride Level 103 98-107 mmol/L Carbon Dioxide Level 26 20-31 mmol/L Anion Gap 9 5-15 Blood Urea Nitrogen 46 H 9-23 mg/dL Creatinine 1.63 H 0.550-1.02 mg/dL Glomerular Filtration Rate Calc 31 >90 mL/min BUN/Creatinine Ratio 28.2 H 10.0-20.0 Serum Glucose 120 H 74-106 mg/dL Calcium Level 10.0 8.7-10.4 mg/dL Total Bilirubin 0.6 0.2-1.0 mg/dL Aspartate Amino Transferase (AST) 19 13-40 U/L Alanine Aminotransferase (ALT) < 9 7-40 U/L Alkaline Phosphatase 89 46-116 U/L B-Type Natriuretic Peptide 1449.71 0-100 pg/mL Total Protein 7.4 5.7-8.2 g/dL Albumin 4.2 3.2-4.8 g/dL [place] [address] Ph: [phone] DIAGNOSTIC IMAGING Diagnostic Imaging Report : [id number] Signed PATIENT: AVTAR VARGAS ACCT: [id number] UNIT: [id number] : 1940 LOC: ER ROOM / BED: / AGE / SEX: 83 / F ADM STATUS: REG ER SERVICE 03 ORDERING PHYSICIAN: VINCE SINGH PROCEDURE(s): HWOCT - HEAD WITHOUT CONTRAST REASON: aloc ORDER NUMBER(s): [id number], ACCESSION NUMBER(s): [id number] EXAM: CT HEAD WITHOUT CONTRAST INDICATION: aloc TECHNIQUE: CT of the head without intravenous contrast. Radiation Dose Information: CT Dose: CTDI volume is 61.35 mGy. Dose-length product is 983.25 mGy*cm The dose indicators for CT are the volume Computed Tomography (CT) Dose Index (CTDIvol) and the Dose Length Product (DLP), and are measured in units of mGy and mGy-cm, respectively. These indicators are not patient dose, but values generated from the CT scanner acquisition factors. The report includes radiation exposure data for exposures received during this examination. COMPARISON: CT ABD PELVIS WO CONTRAST on DOS: 05/08/20, CERVICAL WITHOUT CONTRAST on DOS: 05/08/20, HEAD WITHOUT CONTRAST on DOS: 05/08/20 FINDINGS: There is no evidence of acute intracranial hemorrhage, extra-axial collection, mass effect, midline shift, herniation or hydrocephalus. The ventricles, sulci and cisterns are age appropriate. The sawant-white differentiation is intact. Patchy periventricular and subcortical white matter hypoattenuation is nonspecific but may be related to small vessel ischemic disease. The visualized paranasal sinuses and mastoid air cells are clear. The surrounding soft tissues and osseous structures are unremarkable. IMPRESSION: 1. No acute intracranial hemorrhage. 2. No CT findings of territorial ischemia. ATED BY: WILLAM EDMOND Jr., DO DICTATED DATE/TIME: 06/13/242232 SIGNED BY: WILLAM EDMOND Jr., SIGNED DATE/TIME: 06/13/242232 CC: [place] [address] Ph: [phone] DIAGNOSTIC IMAGING Diagnostic Imaging Report : [id number] Signed PATIENT: AVTAR VARGAS ACCT: [id number] UNIT: [id number] : 1940 LOC: ER ROOM / BED: / AGE / SEX: 83 / F ADM STATUS: REG ER SERVICE 03 ORDERING PHYSICIAN: VINCE SINGH PROCEDURE(s): CXRP - CHEST PORTABLE REASON: weak ORDER NUMBER(s): [id number], ACCESSION NUMBER(s): [id number] CHEST RADIOGRAPH Indication: gen forbes Technique: Single frontal view of the chest was obtained Comparison: XY CHEST PORTABLE on DOS: 10/05/22, CHEST PORTABLE on DOS: 05/08/20 FINDINGS: Lines and Tubes: None Lungs: Clear Pleura: No effusion. No pneumothorax. Cardiomediastinal contours: Unremarkable Bones: Unremarkable IMPRESSION: 1. Clear lungs. ATED BY: EMILY VICTOR DO DICTATED DATE/TIME: 06/13/242228 SIGNED BY: EMILY VICTOR DO SIGNED DATE/TIME: 06/13/242228 CC: [address] [address] Ph: [phone] DIAGNOSTIC IMAGING Diagnostic Imaging Report : [id number] Signed PATIENT: AVTAR VARGAS ACCT: [id number] UNIT: [id number] : 1940 LOC: TELE ROOM / BED: [address] [place] [address] / AGE / SEX: 81 / F ADM STATUS: ADM IN SERVICE 1430 ORDERING PHYSICIAN: MYNOR PRATT PROCEDURE(s): ECIDC - ECHO 2D MODE CARDIAC DOP REASON: Unstable angina ORDER NUMBER(s): [id number], ACCESSION NUMBER(s): [id number] APPROVED REPORT EXAM: Two-dimensional and M-mode echocardiogram with Doppler and color Doppler. Blood Pressure: 183/53 mmHg INDICATION Unstable angina RISK FACTORS Height: 5'5, Weight: 145 DIMENSIONS LVDd 4.4 (3.8-5.7cm) LA (2D) 3.6 (1.9-4.0cm) Aortic Root 2.9 (2.0- 3.7cm) LVDs 3.5 (2.5-4.0cm) LA (MM) (1.9-4.0cm) Aortic Cusp Exc 1.6 (1.5- 2.0cm) EF (%) 41.1 (55-70%) Rt. Atrium 3.3 (1.9-4.0cm) Asc. Aorta cm IVSd 1.5 (0.7-1.1cm) RV (D) 3.1 (1.8-2.4cm) PWd 0.9 (0.7-1.1cm) Mitral Valve Mitral Mitral Stenosis E/A ratio 0.0 2D MVA cm2 Aortic Valve Aortic Valve Aortic Stenosis V1 1.15m/s AO Mean GR. 12mmHg V2 2.68m/s AO Peak GR. 29mmHg LVOT Diameter 1.9 (1.8-2.4cm) Doppler BERRY 1.22cm2 AI P 1/2 Time 459.55ms Pulmonic Valve V2 1.03m/s Tricuspid Valve TR Velocity 2.45m/s RVSP 27mmHg Other Information Technically limited study due to body habitus. <Conclusion> Quality of Study: Technically difficult study Left ventricular size is normal. There is mild concentric LVH. There is inferolateral hypokinesis. Estimated LVEF is mildly reduced at 40-45%. Right ventricular size and free wall motion are normal. Left atrial size is normal Right atrial size is normal. There is Chiari network visualized. The aortic valve is not well visualized, appears calcified with mildly restricted mobility. There is at least mild stenosis and moderate insufficiency by color flow, continuous wave and pulsed Doppler evaluation. V-max 2.7 m/s, mean gradient 12 mmHg. The mitral valve leaflets are thickened but normally mobile. Pulmonary valve not well visualized. There is trace to mild tricuspid regurgitation. RVSP is within normal limits. The inferior vena cava size is not well visualized There is no significant pericardial effusion. SIGNED BY: ARGENIS GUTIERREZ MD SIGNED DATE/TIME: 10/05/22 1968 CC: Assessment/Plan Assessment/Plan Assessment: 83 year old demented lady with several complicated comorbidities was brought to the hospital by family for worsening behavioral symptoms with progressive weakness over past 3-4 weakness. Plan: #1 Generalized deconditioning: Brought to ED for generalized weakness for past 3-4 weeks. Differential diagnosis is wide in this case with aging, worsening dementia, worsening heart failure, worsening depression, metabolic encephalopathy, hypoactive delirium and even constipation. Fall precautions, PT / social work consult for Early discharge planning/placement /DME requirements. #2 history of recurrent angina : On home ranolazine Ranexa 500 mg p.o. b.i.d., continue. #3 presented with hypertensive urgency : Blood pressure systolic in 190s. IV hydralazine status post home dose amlodipine 10 mg p.o. daily started. #4 History of essential hypertension: salt restricted cardiac diet and blood pressure control 140/90 or below is sufficient. #5 anxiety/depression: history of prior suicide attempt /Accidental overdose with narcotics. Presumably denies any present homicidal or suicidal ideation. Continue home citalopram 20 mg daily along with bupropion 75 mg Q 8 hours. #6 Uncontrolled hypertension: history of prior several visits of hypertensive urgency #7 AGUSTÍN due to VMN: could be multifactorial, cardiorenal , continue diuresis and avoid nephrotoxics. CKD stage 3 : Likely creatinine baseline of 1.3 #8 heart failure with moderately reduced ejection fraction since 2018 40-45% stable: repeat echo, lasix iv to continue. #9 COPD: Known COPD at home on as needed inhalers. In-hospital continue med nebs, targeted oxygen saturation to keep between 88-92% SpO2 . Albuterol sulfate 2 mg q.6 PRN. #10 Mild protein energy malnutrition: Diet consult, protein supplements with diet, MVI+ multi-mineral supplements. #11 GERD/PUD prophylaxis: Continue oral Protonix #12 Osteoarthritis: Known osteoarthritis , mainly affecting bilateral knee. with as needed Tylenol and local diclofenac 1% gel. #13 type 2 NSTEMI: Mildly elevation of troponin, denies acute chest pain, hemodynamically stable, CK. Previously recurrent history of NSTEMI, was evaluated by Dr. Alfaro previously, risky for continue pain cardiac catheterization , previously discussed with the family. Since then patient on Ranexa 500 mg p.o. b.i.d.. #14 History of old lacunar infarct, stroke: CT head negative for any acute changes. #15 Previous history of sick sinus syndrome with intermittent bradycardia: In hospital Dr. Vance discussed with the family, risk benefit ratio Konrad family declined for pacemaker placement. We will try to avoid beta blockers /Calcium channel blockers. #16 History of recurrent hypokalemia: at home 10 mg potassium chloride oral tablet daily. follow bmp. #17 vitamin-D deficiency: Continue daily 2000 units p.o. vitamin-D. #18: High-risk for in-hospital delirium: Likely in hyperactive delirium. Delirium precaution measures to continue Along with fall precautions. we will try to avoid beer's criteria drugs as much as possible. #19: Anemia of chronic disease: Normocytic normochromic anemia. Baseline around 11-12. No noted active bleeding. #20: Mild acute exacerbation of systolic congestive heart failure ( acute on chronic): Dyspnea on exertion, shortness of breath, subjective chest condition, BNP elevated 1449, TSH WNL. S/p IV lasix patient is Hemodynamically stable on room air. #21: Goals of care discussion: overall poor prognosis, SW, hospice consultation for further goals of care discussion. DVT prophylaxis: SCD Diet: 2 g salt restricted cardiac diet, 1200 cc per 24 hour of fluid restriction. Barriers to discharge: Medical diagnosis and managment in progress. Patient lives with self / family. Independent/need supportive device/wheelchair/person support for ADL. PT and SW consult as needed. PCP: Michelle Screen Printing Inspector: Dr. Vance. Power of attorny: VANESSA DECKER - DAUGHTER ([phone]), additional contact BRENDAN JENNINGS - DAUGHTER ([phone]), updated. Case discussed with Dr. Brice. Code Status: Full Code. Discussion needed total 29 minutes bedside. Goals of care discussion to continue. Plan discussed with: Patient, Daughter, Other (Primary team, RN) My Orders Orders - DEONTE TEAGUE Procedure Category Date Status Time Admit ADMIT 06/14/24 Transmitted 00:54 Nitroglycerin [facility] 06/14/24 In Process Sublingual (Ntrostat 01:00 Morphine Sulfate PHA 06/14/24 In Process Injection 01:00 Oxygen By Nasal RT 06/14/24 Transmitted Cannula 00:[address] Chest [facility] 06/14/24 In Process Pain 00:54 Notify Md Of Changes [facility] 06/14/24 In Process From Base 00:[address] R[address] [facility] 06/14/24 In Process 24 Hours 00:[address] [facility] 06/14/24 In Process Protocol 00:[address] [facility] 06/14/24 In Process Every Shift 00:[address] [facility] 06/14/24 In Process 00:57 Software Applications Architect ED NURSING 06/14/24 Transmitted 00:[address] [facility] 06/14/24 In Process Oximetry 00:57 Comprehensive LAB 06/14/24 Logged Metabolic Panel 04:00 Complete Blood Count LAB 06/14/24 Logged 04:00 Strict I&O ED NURSING 06/14/24 Transmitted 00:57 Accurate Weight In Kg ED NURSING 06/14/24 Transmitted 00:57 Teach: Heart Failure [facility] 06/14/24 In Process 00:57 Head Of Bed To =/>70 [facility] 06/14/24 In Process Degrees 00:57 Caution Iv Fluid Use [facility] 06/14/24 In Process In Hf Pat 00:57 Stool Occult Blood LAB 06/14/24 Logged 01:00 Furosemide Injection PHA 06/14/24 In Process (Lasix Injection) 06:00 Amlodipine Tablet PHA 06/15/24 In Process (Norvasc Tablet) 10:00 Lactic Acid W/ Reflex LAB 06/14/24 Logged Order 02:26 Date of Service: Jun 14, 2024 Billing Provider: CHEYENNE BRICE MD Common Visit Codes: 45455-YOWWCWX INP/OBS CARE (HIGH) Secondary Visit Codes: 66202-[id number] CARE PLAN 30 MINUTES DEONTE TEAGUE Jun 14, 2024 03:00 CHEYENNE BRICE MD Jun 16, 2024 07:57
[2024-06-14] MEDS: MAGNESIUM SULFATE 1GM/100ML 100 ML IV ONE (03:06)
[2024-06-14 03:41] LABS: Amphetamine Screen, Urine Neg (NEGATIVE); Barbiturate Scree,Urine Neg (NEGATIVE); Benzodiazephine Screen, Urine Neg (NEGATIVE); Cannabinoid Screen, Urine Neg (NEGATIVE); Cocaine Screen, Urine Neg (NEGATIVE); Opiate Scree,Urine Neg (NEGATIVE); Phencyclidine Screen, Urine Neg (NEGATIVE)
[2024-06-14] MEDS: HALOPERIDOL LACTATE 5 MG/ML INJ VIAL IM ONE (04:29)
[2024-06-14] MEDS: PANTOPRAZOLE 40 MG TAB PO SCH (05:31)
[2024-06-14] MEDS: buPROPion HCL 75 MG TAB PO SCH (05:32)
[2024-06-14] MEDS: FUROSEMIDE 20 MG/2 ML VIAL IV SCH (05:33)
[2024-06-14] MEDS: ALBUTEROL SULF 2.5 MG/0.5ML(0.5%) NEB SOLN NEB PRN (07:06)
[2024-06-14] MEDS: IPRATROPIUM BROM 0.5 MG/2.5ML INH SOL NEB SCH (07:07)
[2024-06-14 07:52] LABS: Basophils # (auto) 0.1 10 ^3/uL (0-0.2); Basophils % (auto) 0.9 % (0.0-2.0); Eosinophils # (auto) 0.1 10 ^3/uL (0-0.8); Eosinophils % (auto) 0.9 % (0.0-7.0); Hematocrit 34.4 % (36.0-46.0); Hemoglobin 11.4 g/dL (12.2-16.2); Lymphocytes # (auto) 1.5 10 ^3/uL (0.4-5.4); Lymphocytes % (auto) 16.5 % (10.0-50.0); Mean Corpuscular Hemoglobin 30.6 pg (28.0-32.0); Mean Corpuscular Hgb Conc. 33.3 g/dL (32.0-36.0); Monocytes # (auto) 0.7 10 ^3/uL (0-1.3); Monocytes % (auto) 7.1 % (0.0-12.0); Neutrophils # (auto) 6.8 10 ^3/uL (1.6-8.6); Neutrophils % (auto) 74.6 % (37.0-80.0); Platelet Count (auto) 266 10^3/uL (140-450); Red Blood Cells 3.74 10^6/uL (4.0-5.20); Red Cell Distribution Width 15.2 % (11.8-14.3); White Blood Cell 9.2 10^3/uL (4.4-10.8)
[2024-06-14 08:02] LABS: Albumin 3.8 g/dL (3.2-4.8); Alkaline Phosphatase 83 U/L (46-116); Anion Gap 10 (5-15); Aspartate Aminotransferase 23 U/L (13-40); BUN/Creatinine Ratio 25.5 (10.0-20.0); Bilirubin, Total 0.7 mg/dL (0.2-1.0); Blood Urea Nitrogen 40 mg/dL (9-23); Calcium 10.1 mg/dL (8.7-10.4); Carbon Dioxide 25 mmol/L (20-31); Chloride 104 mmol/L (98-107); Glucose 98 mg/dL (74-106); Potassium 3.5 mmol/L (3.5-5.1); Sodium 139 mmol/L (136-145)
[2024-06-14 08:14] LABS: Alanine Aminotransferase < 9 U/L (7-40)
[2024-06-14] MEDS: MAGNESIUM OXIDE 400 MG TAB PO SCH (09:39)
[2024-06-14] MEDS: RANOLAZINE ER 500 MG TAB PO SCH (09:39)
[2024-06-14] MEDS: CITALOPRAM HYDROBR 20 MG TAB PO SCH (09:39)
[2024-06-14] MEDS: CHOLECALCIFEROL (VITD3) 1,000UNIT=25mCg TAB PO SCH (09:40)
--- NOTE | 2024-06-14 11:47 | ECG ---
[facility] Test Date: 2024-06-13 Test Time: 21:52:41 Pat Name: AVTAR MÉNDEZ Department: ER Room: [address] [place] [address] Gender: F Log Handler: DEMI : 1940 Requested By: VINCE SINGH Order Number: [id number] Reading MD: Presley Fulton Measurements Intervals [place] Rate: 70 P: 36 DC: 187 QRS: 17 QRSD: 169 T: 190 QT: 463 QTc: 500 Interpretive Statements Sinus rhythm Left bundle branch block Electronically Signed On 06-14-2024 14:18:07 PST by Presley Fulton Please click the below link to view image of tracing.
--- NOTE | 2024-06-14 13:07 | DVHSR ---
APPROVED REPORT EXAM: LIMITED Two-dimensional and M-mode echocardiogram with Doppler and color Doppler. Blood Pressure: 141/49 mmHg INDICATION known heart failure 40-45% RISK FACTORS Height: 5'2, Weight: 110 DIMENSIONS LVDd3.9 (3.8-5.7cm)LA (2D)3.2 (1.9-4.0cm)Aortic Root3.0 (2.0-3.7cm) LVDs3.1 (2.5-4.0cm)LA (MM) (1.9-4.0cm)Aortic Cusp Exc1.1 (1.5-2.0cm) EF (%) 40.0 (55-70%)Rt. Atrium2.9 (1.9-4.0cm)Asc. Aorta cm IVSd1.3 (0.7-1.1cm)RV (D) (1.8-2.4cm) PWd1.6 (0.7-1.1cm) Mitral Valve MitralMitral Stenosis E wave1.08m/sMV Mean GR.3mmHg A wavem/sMV Peak GR.5mmHg E/A ratio0.02D MVAcm2 DECEL [id number] 1/2 Timems Aortic Valve Aortic ValveAortic Stenosis V11.09m/Adina Mean GR.19mmHg V23.00m/Adina Peak GR.36mmHg LVOT Diameter1.7 (1.8-2.4cm)Doppler AVA0.82cm2 AI P 1/2 Yivh547.06ms Tricuspid Valve TR Velocity2.45m/s [id number] Other Information Quality : LimitedRhythm : Technically limited study due to patient position.patient moving. Conclusion [id number] concentric left ventricular hypertrophy. Moderately reduced left ventricular systol ic function at 40%. There is a grade 1 diastolic dysfunction. Normal right ventricular size dimension and systolic function. Estimated right ventricular systolic pressure at 24 mm of mercury.. Normal Biatrial size dimension. The aortic thickened and sclerotic is moderate regurgitation. Trace tricuspid regurgitation normal tricuspid has regurgitation No significant pericardial
--- NOTE | 2024-06-14 14:55 | ECG ---
[facility] [place] Test Date: 2024-06-13 Test Time: 21:58:58 Pat Name: AVTAR MÉNDEZ Department: ER Room: [address] [place] [address] Gender: F Electronic Sales And Service Technician: DEMI : 1940 Requested By: VINCE SINGH Order Number: [id number] Reading MD: Presley Fulton Measurements Intervals [place] Rate: 102 P: 58 VT: 160 QRS: -34 QRSD: 84 T: 15 QT: 345 QTc: 450 Interpretive Statements Sinus tachycardia Inferior infarct, old Electronically Signed On 06-14-2024 16:26:23 PST by Presley Fulton Please click the below link to view image of tracing.
--- NOTE | 2024-06-14 18:23 | DVHDSRES ---
Discharge Summary Date of Admission Resident Creating Document: DEONTE TEAGUE RESIDENT Jun 14, 2024 at 00:55 Date of Discharge: Jun 14, 2024 Admitting Diagnosis Hypertensive emergency Labs/Diagnostic Data: Laboratory Results Test 06/14/24 07:38 06/14/24 01:10 06/13/24 22:40 06/13/24 22:27 White Blood Count 9.2 10^3/uL (4.4-10.8) Red Blood Count 3.74 10^6/uL (4.0-5.20) Hemoglobin 11.4 g/dL (12.2-16.2) Hematocrit 34.4 % (36.0-46.0) Mean Corpuscular Volume 92.0 fL (80.0-100.0) Mean Corpuscular Hemoglobin 30.6 pg (28.0-32.0) Mean Corpuscular Hemoglobin Concent 33.3 g/dL (32.0-36.0) Red Cell Distribution Width 15.2 % (11.8-14.3) Platelet Count 266 10^3/uL (140-450) Mean Platelet Volume 7.7 fL (6.9-10.8) Neutrophils (%) (Auto) 74.6 % (37.0-80.0) Lymphocytes (%) (Auto) 16.5 % (10.0-50.0) Monocytes (%) (Auto) 7.1 % (0.0-12.0) Eosinophils (%) (Auto) 0.9 % (0.0-7.0) Basophils (%) (Auto) 0.9 % (0.0-2.0) Neutrophils # (Auto) 6.8 10 ^3/uL (1.6-8.6) Lymphocytes # (Auto) 1.5 10 ^3/uL (0.4-5.4) Monocytes # (Auto) 0.7 10 ^3/uL (0-1.3) Eosinophils # (Auto) 0.1 10 ^3/uL (0-0.8) Basophils # (Auto) 0.1 10 ^3/uL (0-0.2) Nucleated Red Blood Cells 0.0 % Sodium Level 139 mmol/L (136-145) Potassium Level 3.5 mmol/L (3.5-5.1) Chloride Level 104 mmol/L (98-107) Carbon Dioxide Level 25 mmol/L (20-31) Anion Gap 10 (5-15) Blood Urea Nitrogen 40 mg/dL (9-23) Creatinine 1.57 mg/dL (0.550-1.02) Glomerular Filtration Rate Calc 32 mL/min (>90) BUN/Creatinine Ratio 25.5 (10.0-20.0) Serum Glucose 98 mg/dL (74-106) Calcium Level 10.1 mg/dL (8.7-10.4) Total Bilirubin 0.7 mg/dL (0.2-1.0) Aspartate Amino Transferase (AST) 23 U/L (13-40) Alanine Aminotransferase (ALT) < 9 U/L (7-40) Alkaline Phosphatase 83 U/L (46-116) Total Protein 7.0 g/dL (5.7-8.2) Albumin 3.8 g/dL (3.2-4.8) Lactic Acid Level 1.6 mmol/L (0.4-2.0) Magnesium Level 1.9 mg/dL (1.6-2.6) Troponin I High Sensitivity 42 ng/L (</=34) Thyroid Stimulating Hormone (TSH) 2.42 uIU/mL (0.55-4.78) Urine Color Light-yellow (Yellow) Urine Clarity Clear (Clear) Urine pH 6.0 (5.0-9.0) Urine Specific [place] 1.012 (1.001-1.035) Urine Protein Trace (Negative) Urine Ketones Negative (Negative) Urine Blood Negative /uL (Negative) Urine Nitrite Negative (Negative) Urine Bilirubin Negative (Negative) Urine Urobilinogen Normal mg/dL (Negative) Urine Leukocyte Esterase Negative /uL (Negative) Urine RBC 1 /hpf (0 - 4) Urine WBC <1 /hpf (0 - 5) Urine Squamous Epithelial Cells Few /hpf (<5) Urine Bacteria None seen /hpf (None Seen) Urine Glucose Normal mg/dL (Normal) Urine Opiates Screen Neg (NEGATIVE) Urine Fentanyl Screen Neg (NEGATIVE) Urine Barbiturates Screen Neg (NEGATIVE) Urine Phencyclidine Screen Neg (NEGATIVE) Urine Amphetamines Screen Neg (NEGATIVE) Urine Benzodiazepines Screen Neg (NEGATIVE) Urine Cocaine Screen Neg (NEGATIVE) Urine Cannabinoids Screen Neg (NEGATIVE) B-Type Natriuretic Peptide 1449.71 pg/mL (0-100) Other Laboratory Tests 06/14/24 07:38 Brief Hx & Hospital Course: An 83-year-old female with a complex medical history, including hypertension, CAD with multiple interventions, CKD, COPD, and dementia, was admitted to the hospital [facility] a [facility] facility due to altered mental status and behavioral disturbances. According to her daughter, the patient had been experiencing a progressive decline in executive functions over the past two months, raising concerns for possible frontotemporal dementia. The patient also reported experiencing visual hallucinations, further contributing to her cognitive and behavioral changes. A head CT showed chronic vascular changes, and lab work revealed only mild CKD without acute abnormalities. Her evaluation ruled out acute infections, metabolic derangements, or other reversible causes for her symptoms, and her AMS was attributed to her chronic dementia. These findings, along with her overall decline, are consistent with advanced-stage dementia, likely of a frontotemporal origin. Given her progressive cognitive decline, poor prognosis, and presence of hallucinations, the decision was made to transition the patient to hospice care for comfort-focused management. This plan was actively discussed with her daughter, who agreed and understood the care goals. The patient will be discharged to a hospice facility, with supportive measures in place to prioritize her quality of life and manage her symptoms, including hallucinations. The family was counseled on her condition, prognosis, and available resources to ensure she receives appropriate care moving forward Patient also presented with elevated blood pressure that subsided and mildly elevated BNP, reasons of admission, but due to hospice plan and long discussion no further work up will be done HEENT: Normocephalic, atraumatic. Pupils equal, round, and reactive to light. Extraocular movements intact. No scleral icterus or conjunctival injection. Oropharynx clear, no lesions. Neck: Supple, no lymphadenopathy or jugular venous distension. Cardiovascular: Regular rate and rhythm, no murmurs, rubs, or gallops. Peripheral pulses 2+ bilaterally. Respiratory: Clear to auscultation bilaterally, no wheezes, rales, or rhonchi. Abdomen: Soft, non-tender, non-distended. No organomegaly or masses. Bowel sounds present. Musculoskeletal: No deformities or tenderness. Full range of motion in all major joints. Neurological: Mental Status: Alert Decline in executive functioning noted. Motor: Strength 4/5 in bilateral upper and lower extremities. No focal deficits or tremors. Coordination: Unable to perform rapid alternating movements and fails to complete a simple task of clapping three times consecutively, demonstrating difficulty with motor planning and initiation. Reflexes: 2+ and symmetric in upper and lower extremities. No Babinski sign. Sensory: Intact to light touch and proprioception. Skin: Warm, dry, and intact. No rashes or lesions. Extremities: No edema or cyanosis. Case discussed with Dr Raza Time spent on care 23 min Operations or Procedures EXAM: CT HEAD WITHOUT CONTRAST INDICATION: aloc TECHNIQUE: CT of the head without intravenous contrast. Radiation Dose Information: CT Dose: CTDI volume is 61.35 mGy. Dose-length product is 983.25 mGy*cm The dose indicators for CT are the volume Computed Tomography (CT) Dose Index (CTDIvol) and the Dose Length Product (DLP), and are measured in units of mGy and mGy-cm, respectively. These indicators are not patient dose, but values generated from the CT scanner acquisition factors. The report includes radiation exposure data for exposures received during this examination. COMPARISON: CT ABD PELVIS WO CONTRAST on DOS: 05/08/20, CERVICAL WITHOUT CONTRAST on DOS: 05/08/20, HEAD WITHOUT CONTRAST on DOS: 05/08/20 FINDINGS: There is no evidence of acute intracranial hemorrhage, extra-axial collection, mass effect, midline shift, herniation or hydrocephalus. The ventricles, sulci and cisterns are age appropriate. The sawant-white differentiation is intact. Patchy periventricular and subcortical white matter hypoattenuation is nonspecific but may be related to small vessel ischemic disease. The visualized paranasal sinuses and mastoid air cells are clear. The surrounding soft tissues and osseous structures are unremarkable. IMPRESSION: 1. No acute intracranial hemorrhage. 2. No CT findings of territorial ischemia. Condition at Discharge: Stable Final Diagnosis/Problems List Altered mental status on vascular dementia/ frontotemporal dementia Hypertensive emergency resolved Acute on chronic Heart failure with moderately reduced ejection fraction AGUSTÍN due to VMN on CKD and hypertensive emergency Mild protein-energy malnutrition H/o COPD Type 2 NSTEMI on hypertensive emergency Discharge Disposition: Hospice- Medical Facility Discharge Instruct/Medications Diet: Consistent carbohydrate, Cardiac 2g Na,low cholest Activity: Light activity Follow Up/Referral: per hospice Medications: per hospice Discharge Statement: "Patient was advised to return to the ER or call 911 if any headaches, dizziness, shortness of breath, chest pain, abdominal pain, bleeding, fevers, or worsening of medical condition. Patient was counseled about treatment plan, medications, possible side effects, patientverbalized understanding. All questions were answered to the best of my ability. This discharge took greater then 30 minutes in planning, reviewing documentation, counseling the patient, and discussing with other team members." ASSESSMENT ASSESSMENT Assessment rapid progresive dementia Date of Service: Jun 14, 2024 Billing Provider: DUDLEY RAZA MD Common Visit Codes: 00335-MIF/OBS DISCH DAY >30min Secondary Visit Codes: [id number] CARE PLAN 30 MINUTES, [id number] CARE PLAN ADDL 30MIN Coding Comment Comment Attending Attestation I saw and evaluated the patient. I reviewed the residents note and agree with findings and plan as documented in the residents note except as documented below. More than 30 minutes spent in advanced care planning, including discussing code status, medical decision maker, goals of care and disposition planning. Discussed with family likelihood that patient is having frontotemporal/vascular dementia, family indicates that she is unable to care the patient home she further deteriorates. Discussed above placement, patient will benefit hospice placement and family agrees. Patient in [facility] hospice consult social media marketing specialist for discharge planning LIZ GARCIA RESIDENT Jun 14, 2024 18:23 DUDLEY RAZA MD Jun 15, 2024 22:23
[2024-06-14] MEDS: Ensure HIGH Protein Chocolate 8oz Bottle PO SCH (19:22)
[2024-06-14] MEDS: ATORVASTATIN 20 MG TAB PO SCH (22:00)
[2024-06-14] MEDS: HALOPERIDOL LACTATE 5 MG/ML INJ VIAL IM PRN (23:30)
[2024-06-15 01:00] VITALS: BP 142/70; PULSE 74; RESP 18; O2SAT 92
[2024-06-15 05:00] VITALS: BP 153/72; PULSE 68; RESP 18; TEMP 98.2; O2SAT 92
[2024-06-15 08:00] VITALS: PULSE 75; O2SAT 97
[2024-06-15 09:00] VITALS: BP 111/51; PULSE 60; RESP 16; TEMP 98.4; O2SAT 95
[2024-06-15] MEDS: amLODIPine BESYLATE 5 MG TAB PO SCH (09:51)
[2024-06-15 10:00] VITALS: O2SAT 94
[2024-06-15] MEDS ORDERED: IPRATROPIUM BROM 0.5 MG/2.5ML INH SOL NEB PRN (11:15)
[2024-06-15] MEDS ORDERED: BUM1T PO (11:37)
--- NOTE | 2024-06-15 16:16 | DVHPNRES ---
Progress Note Date Seen: Jun 15, 2024 Resident Creating Document: LIZ GARCIA RESIDENT Has the PT tested + for MRSA If YES, has PT been informed?: No Medical Necessity Reason Pt with a Central, PICC or Fol: No Subjective Review of Systems An 83-year-old female with a complex medical history, including hypertension, CAD with multiple interventions, CKD, COPD, and dementia, was [facility] to the hospital [facility] facility due to altered mental status and behavioral disturbances. According to her daughter, the patient had been experiencing a progressive decline in executive functions over the past two months, raising concerns for possible frontotemporal dementia. The patient also reported experiencing visual hallucinations, further contributing to her cognitive and behavioral changes. A head CT showed chronic vascular changes, and lab work revealed only mild CKD without acute abnormalities. Her evaluation ruled out acute infections, metabolic derangements, or other reversible causes for her symptoms, and her AMS was attributed to her chronic dementia. These findings, along with her overall decline, are consistent with advanced-stage dementia, likely of a frontotemporal origin. Given her progressive cognitive decline, poor prognosis, and presence of hallucinations, the decision was made to transition the patient to hospice care for comfort-focused management. This plan was actively discussed with her daughter, who agreed and understood the care goals. The patient will be discharged to a hospice facility, with supportive measures in place to prioritize her quality of life and manage her symptoms, including hallucinations. The family was counseled on her condition, prognosis, and available resources to ensure she receives appropriate care moving forward Patient also presented with elevated blood pressure that subsided and mildly elevated BNP, reasons of admission, but due to hospice plan and long discussion no further work up will be done. Today the patient was more combative than yesterday Case discussed with Dr Lr Time spent on care 23 min Objective vital signs Vital Sign Date Time Temp Pulse Resp B/P (MAP) Pulse Ox O2 Delivery O2 Flow Rate FiO2 06/15/24 10:00 94 Room Air 0.0 06/15/24 10:00 21 06/15/24 09:51 111/51 06/15/24 09:00 98.4 60 16 98.4 Total Intake and Output 06/14/24 06/14/24 06/15/24 15:00 23:00 07:00 Intake Total 240 ml 350 ml Output Total 900 ml 400 ml Balance -900 ml -160 ml 350 ml medications Current Medications Medications Dose Ordered Sig/Parker Route Start Time Stop Time Status Last Admin Dose Admin Amlodipine Besylate 10 mg DAILY PO 06/15/24 10:00 06/15/24 09:51 10 MG Atorvastatin Calcium 40 mg HS PO 06/14/24 22:00 Bupropion HCl 75 mg TID PO 06/14/24 06:00 06/15/24 14:48 75 MG Cholecalciferol 2,000 unit DAILY PO 06/14/24 10:00 06/15/24 09:49 2,000 UNIT Citalopram Hydrobromide 20 mg DAILY PO 06/14/24 10:00 06/15/24 09:49 20 MG Magnesium Oxide 400 mg DAILY PO 06/14/24 10:00 06/15/24 09:49 400 MG Pantoprazole Sodium 40 mg DAILY@0600 PO 06/14/24 06:00 06/15/24 05:19 40 MG Ranolazine 500 mg BID PO 06/14/24 10:00 06/15/24 09:49 500 MG Enteral Nutritional Formula 240 ml QID PO 06/14/24 18:00 06/15/24 12:03 240 ML Haloperidol Lactate 2.5 mg Q8HP PRN IM 06/14/24 23:15 06/14/24 23:30 2.5 MG Ipratropium [place]onda 0.5 mg Q4HPRN PRN NEB 06/15/24 11:15 Examination HEENT: Normocephalic, atraumatic. Pupils equal, round, and reactive to light. Extraocular movements intact. No scleral icterus or conjunctival injection. Oropharynx clear, no lesions. Neck: Supple, no lymphadenopathy or jugular venous distension. Cardiovascular: Regular rate and rhythm, no murmurs, rubs, or gallops. Peripheral pulses 2+ bilaterally. Respiratory: Clear to auscultation bilaterally, no wheezes, rales, or rhonchi. Abdomen: Soft, non-tender, non-distended. No organomegaly or masses. Bowel sounds present. Musculoskeletal: No deformities or tenderness. Full range of motion in all major joints. Neurological: Mental Status: Alert Decline in executive functioning noted. Motor: Strength 4/5 in bilateral upper and lower extremities. No focal deficits or tremors. Coordination: Unable to perform rapid alternating movements and fails to complete a simple task of clapping three times consecutively, demonstrating difficulty with motor planning and initiation. Reflexes: 2+ and symmetric in upper and lower extremities. No Babinski sign. Sensory: Intact to light touch and proprioception. Skin: Warm, dry, and intact. No rashes or lesions. Extremities: No edema or cyanosis. laboratory and microbiology Laboratory Tests 06/14/24 07:38 Test 06/14/24 07:38 Range/Units Serum Glucose 98 74-106 mg/dL Problem List/Assessment/Plan Problem List/Assessment/Plan Altered mental status on vascular dementia/ frontotemporal dementia Hypertensive emergency resolved Acute on chronic Heart failure with moderately reduced ejection fraction AGUSTÍN due to VMN on CKD and hypertensive emergency Mild protein-energy malnutrition H/o COPD Type 2 NSTEMI on hypertensive emergency Amlodipine for BP control Stop furosemide DC breath treatments Continue nutritional supplements Aspiration precautions We are waiting for hospice placement Case discussed with Dr Lr Time spent on care 23 min Plan discussed with: Daughter, Other (rn) My Orders My Orders Orders - LIZ GARCIA RESIDENT Procedure Category Date Status Time Nutritional PHA 06/14/24 In Process Supplements (Ensure 18:00 Transfer Orders XFER 06/14/24 Transmitted 17:07 Discharge DISCHARGE 06/14/24 Transmitted 18:17 Ipratropium Medneb PHA 06/15/24 In Process (Atrovent Medneb) 11:15 Strict Aspiration PUSHPA 06/15/24 In Process Precautions 13:18 Date of Service: Jun 15, 2024 Billing Provider: DUDLEY LR MD Common Visit Codes: [id number] INP/OBS CARE(MOD) LIZ GARCIA RESIDENT Jun 15, 2024 16:16 DUDLEY LR MD Jun 15, 2024 22:23
[2024-06-15 22:33] VITALS: O2SAT 95
[2024-06-16] VITALS (8 sets, daily range): BP systolic 111–187; BP diastolic 50–66; PULSE 63–78; RESP 16–18; TEMP 36.6; O2SAT 92–97
--- NOTE | 2024-06-16 15:26 | DVHPNRES ---
Progress Note Date Seen: Jun 16, 2024 Resident Creating Document: LIZ GARCIA RESIDENT Has the PT tested + for MRSA If YES, has PT been informed?: No Medical Necessity Reason Pt with a Central, PICC or Fol: No Subjective Review of Systems An 83-year-old female with a complex medical history, including hypertension, CAD with multiple interventions, CKD, COPD, and dementia, was admitted to the hospital from a senior care facility due to altered mental status and behavioral disturbances. According to her daughter, the patient had been experiencing a progressive decline in executive functions over the past two months, raising concerns for possible frontotemporal dementia. The patient also reported experiencing visual hallucinations, further contributing to her cognitive and behavioral changes. A head CT showed chronic vascular changes, and lab work revealed only mild CKD without acute abnormalities. Her evaluation ruled out acute infections, metabolic derangements, or other reversible causes for her symptoms, and her AMS was attributed to her chronic dementia. These findings, along with her overall decline, are consistent with advanced-stage dementia, likely of a frontotemporal origin. Given her progressive cognitive decline, poor prognosis, and presence of hallucinations, the decision was made to transition the patient to hospice care for comfort-focused management. This plan was actively discussed with her daughter, who agreed and understood the care goals. The patient will be discharged to a hospice facility, with supportive measures in place to prioritize her quality of life and manage her symptoms, including hallucinations. The family was counseled on her condition, prognosis, and available resources to ensure she receives appropriate care moving forward Patient also presented with elevated blood pressure that subsided and mildly elevated BNP, reasons of admission, but due to hospice plan and long discussion no further work up will be done. Today the patient was more combative than yesterday Objective vital signs Vital Sign Date Time Temp Pulse Resp B/P (MAP) Pulse Ox O2 Delivery O2 Flow Rate FiO2 06/16/24 13:00 97.4 78 16 187/50 (95) 92 97.4 06/16/24 09:44 Room Air 06/16/24 09:43 0 21 Total Intake and Output 06/15/24 06/15/24 06/16/24 15:00 23:00 07:00 Intake Total 500 ml 300 ml Balance 500 ml 300 ml Examination HEENT: Normocephalic, atraumatic. Pupils equal, round, and reactive to light. Extraocular movements intact. No scleral icterus or conjunctival injection. Oropharynx clear, no lesions. Neck: Supple, no lymphadenopathy or jugular venous distension. Cardiovascular: Regular rate and rhythm, no murmurs, rubs, or gallops. Peripheral pulses 2+ bilaterally. Respiratory: Clear to auscultation bilaterally, no wheezes, rales, or rhonchi. Abdomen: Soft, non-tender, non-distended. No organomegaly or masses. Bowel sounds present. Musculoskeletal: No deformities or tenderness. Full range of motion in all major joints. Neurological: Mental Status: Alert Decline in executive functioning noted. Motor: Strength 4/5 in bilateral upper and lower extremities. No focal deficits or tremors. Coordination: Unable to perform rapid alternating movements and fails to complete a simple task of clapping three times consecutively, demonstrating difficulty with motor planning and initiation. Reflexes: 2+ and symmetric in upper and lower extremities. No Babinski sign. Sensory: Intact to light touch and proprioception. Skin: Warm, dry, and intact. No rashes or lesions. Extremities: No edema or cyanosis. laboratory and microbiology Laboratory Tests 06/14/24 07:38 Test 06/14/24 07:38 Range/Units Serum Glucose 98 74-106 mg/dL Problem List/Assessment/Plan Problem List/Assessment/Plan Altered mental status on vascular dementia/ frontotemporal dementia Hypertensive emergency resolved Acute on chronic Heart failure with moderately reduced ejection fraction AGUSTÍN due to VMN on CKD and hypertensive emergency Mild protein-energy malnutrition H/o COPD Type 2 NSTEMI on hypertensive emergency Amlodipine for BP control Stop furosemide DC breath treatments Continue nutritional supplements Aspiration precautions Patient already left to hospice Case discussed with Dr Lr Time spent on care 23 min Plan discussed with: Patient, Other (rn) Date of Service: Jun 16, 2024 Billing Provider: DUDLEY LR MD Common Visit Codes: [id number] INP/OBS CARE(MOD) LIZ GARCIA RESIDENT Jun 16, 2024 15:26 DUDLEY LR MD Jun 16, 2024 23:01
[2024-06-17 04:06] LABS: RPR Non Reactive (Non Reactive)
== END 2024-06-16 13:30 | disposition hospice, home (50) | DRG 280 ==
LOC: ER 21:32 → TELE 06-14 00:55 → WEST WING 06-14 22:57
PROVIDERS: ADMIT Student in an Organized Health Care Education/Training Program; ATTEND Student in an Organized Health Care Education/Training Program
DX: I13.0 Hypertensive heart and chronic kidney disease with heart failure and stage 1 through stage 4 chronic kidney disease, or unspecified chronic kidney disease (principal); G93.41 Metabolic encephalopathy; I21.A1 Myocardial infarction type 2; I50.23 Acute on chronic systolic (congestive) heart failure; N17.0 Acute kidney failure with tubular necrosis; I16.1 Hypertensive emergency; E44.1 Mild protein-calorie malnutrition; J44.9 Chronic obstructive pulmonary disease, unspecified; D63.8 Anemia in other chronic diseases classified elsewhere; G31.09 Other frontotemporal neurocognitive disorder; F02.80 Dementia in other diseases classified elsewhere, unspecified severity, without behavioral disturbance, psychotic disturbance, mood disturbance, and anxiety; F01.50 Vascular dementia, unspecified severity, without behavioral disturbance, psychotic disturbance, mood disturbance, and anxiety; F41.9 Anxiety disorder, unspecified; F32.A Depression, unspecified; Z96.651 Presence of right artificial knee joint; I25.10 Atherosclerotic heart disease of native coronary artery without angina pectoris; K21.9 Gastro-esophageal reflux disease without esophagitis; E55.9 Vitamin D deficiency, unspecified; N18.30 Chronic kidney disease, stage 3 unspecified; I25.2 Old myocardial infarction; Z91.51 Personal history of suicidal behavior; Z68.23 Body mass index [BMI] 23.0-23.9, adult
CPT/HCPCS: 36415; 70450; 71045; 80053; 80307; 81001; 82607; 83605; 83735; 83880; 84443; 84484; 85025; 86592; 86703; 93005; 93306; 94640; G0378